=== PATIENT | male | born 1945 | race American Indian/Alaskan Native ===

== ENCOUNTER 2017-01-07 23:48 | Inpatient (IN) | payer MEDICARE, OTHER ==
--- NOTE | 2017-01-08 00:44 | C.PDOC ---
History Of Present Illness Patient presents to the ER with a complaint of left thigh pain. Patient was diagnosed with a blastomycosis infection to the left thigh and has been sporonox with improvement; however, he had to stop due to swelling. Denies fever or chills. Time Seen by Provider: 01/08/17 00:44 Chief Complaint (Nursing): Abnormal Skin Integrity History Per: Patient History/Exam Limitations: no limitations Onset/Duration Of Symptoms: Days Current Symptoms Are (Timing): Still Present Location Of Injury: Left: Thigh (Infection) Quality Of Symptoms: Painful Severity: Mild Pain Scale Rating Of: 4 Recent travel outside of the [place]: No Past Medical History Reviewed: Historical Data, Nursing Documentation, Vital Signs Vital Signs: Last Vital Signs Temp 98.6 F 01/08/17 00:11 Pulse 80 01/08/17 00:11 Resp 16 01/08/17 00:11 BP 167/75 H 01/08/17 00:11 Pulse Ox 100 01/08/17 01:57 - Medical History PMH: Diabetes, HTN - [facility] Procedures DRAINAGE OF BLADDER WITH DRAINAGE DEVICE, VIA OPENING (05/26/16) INSERTION OF INFUSION DEV INTO SUP VENA CAVA, PERC APPROACH (05/26/16) Family History: States: No Known Family Hx - Social History Hx Tobacco Use: Yes (former smoker) Hx Alcohol Use: No Hx Substance Use: No - Immunization History Hx Tetanus Toxoid Vaccination: No Hx Influenza Vaccination: No Hx Pneumococcal Vaccination: No Review Of Systems Constitutional: Negative for: Fever, Chills Musculoskeletal: Positive for: Leg Pain (Left) Skin: Positive for: Lesions (Left thigh) Physical Exam - Physical Exam Appears: Non-toxic Skin: Warm, Dry Head: Atraumatic Eye(s): bilateral: Normal Inspection Oral Mucosa: Moist Neck: Trachea Midline, Supple Chest: Symmetrical, No Tenderness Cardiovascular: Rhythm Regular, No Murmur Respiratory: No Rales, No Rhonchi, No Wheezing Gastrointestinal/Abdominal: Soft, No Tenderness Back: No CVA Tenderness Extremity: Pedal Edema (Bilateral), Other (5x3cm mass to inner left thigh w/ foul smelling discharge. Left hand edema.) Extremity: Bilateral: Atraumatic Neurological/Psych: Oriented x3, Normal Speech, Normal Cognition Gait: Steady ED Course And Treatment - Laboratory Results Result Diagrams: 01/08/17 01:19 01/08/17 01:19 O2 Sat by Pulse Oximetry: 100 (Room air) Pulse Ox Interpretation: Normal - Radiology CXR: Interpreted by Me, Viewed By Me CXR Interpretation: Yes: Other (uncahnged from 05/26/1016). No: Infiltrates, Fracture, Pnemothorax Progress Note: Blood work, urinalysis and CXR ordered. Morphine administered. Disposition Discussed With Dr.: Halie Rojas Comment: accepted the pt on his service and took over the care at 4:20 AM Doctor Will See Patient In The: Hospital Counseled Patient/Family Regarding: Studies Performed, Diagnosis - Disposition Disposition: HOSPITALIZED Disposition Time: 00:44 Condition: FAIR - POA Present On Arrival: Poor Glycemic Control - Clinical Impression Clinical Impression: Skin irritation, Blastomycosis - Scribe Statement The provider has reviewed the documentation as recorded by the Scribneptali Higginbotham All medical record entries made by the Scribe were at my direction and personally dictated by me. I have reviewed the chart and agree that the record accurately reflects my personal performance of the history, physical exam, medical decision making, and the department course for this patient. I have also personally directed, reviewed, and agree with the discharge instructions and disposition. Decision To Admit - Pt Status Changed To: Hospital Disposition Of: Inpatient - Admit Certification Admit to Inpatient:: After my assessment, the patient will require hospitalization for at least two midnights. This is because of the severity of symptoms shown, intensity of services needed, and/or the medical risk in this patient being treated as an outpatient. - InPatient: Physician Admission Certification: I certify that this patient requires 2 or more midnights of care for the following reason:: After my assessment, the patient will require hospitalization for at least two midnights. This is because of the severity of symptoms shown, intensity of services needed, and/or the medical risk in this patient being treated as an outpatient. - . Bed Request Type: Regular Admitting Physician: Halie Rojas Patient Diagnosis: Skin irritation, Blastomycosis
[2017-01-08 01:22] LABS: EOS # 0.1 K/uL (0.0-0.7); HEMATOCRIT 30.4 % (35.0-51.0); LYMPH # 0.9 K/uL (1.0-4.3); MEAN CORPUSCULAR HGB CONC 32.7 g/dL (33.0-37.0); MEAN PLATELET VOLUME 10.4 fL (7.2-11.7); NRBC % 0.1 % (0.0-2.0); RED CELL DISTRIBUTION WIDTH 14.8 % (11.5-14.5); WHITE BLOOD COUNT 4.8 K/uL (4.8-10.8)
[2017-01-08 01:30] LABS: CHLORIDE 102 mmol/L (98-107); POTASSIUM 4.6 mmol/L (3.6-5.2); SODIUM 134 mmol/L (132-148)
[2017-01-08 01:32] LABS: BILIRUBIN,TOTAL 0.9 mg/dL (0.2-1.3); GFR AFRICAN-AMERICAN 43
[2017-01-08 01:33] LABS: ALB/GLOB RATIO 1.1 (1.0-2.1); ALKALINE PHOSPHATASE 93 U/L (38-126); ALT/SGPT 29 U/L (21-72); AST/SGOT 30 U/L (17-59); BLOOD UREA NITROGEN 59 mg/dL (9-20); CARBON DIOXIDE 22 mmol/L (22-30); GLUCOSE,RANDOM 186 mg/dL (75-110); TOTAL PROTEIN 6.3 g/dL (6.3-8.3)
[2017-01-08 01:34] LABS: CALCIUM 6.9 mg/dl (8.6-10.4)
[2017-01-08 01:40] LABS: VENOUS BLOOD GAS BASE EXCESS 1.9 mmol/L (0.0-2.0); VENOUS BLOOD GAS PCO2 50 mmHg (40-60); VENOUS BLOOD PH 7.36 (7.32-7.43)
[2017-01-08 01:55] LABS: MONO # 0.5 K/uL (0.0-0.8)
[2017-01-08 01:56] LABS: BASO # 0.1 K/uL (0.0-0.2)
[2017-01-08 02:17] LABS: RBC URINE 8 /hpf (0-3); URINE BACTERIA RARE (<OCC); URINE BILIRUBIN NEGATIVE (NEGATIVE); URINE BLOOD 1+ (NEGATIVE); URINE COLOR Yellow (YELLOW); URINE GLUCOSE (UA) NORMAL (Normal); URINE KETONE NEGATIVE (NEGATIVE); URINE LEUKOCYTE ESTERASE 2+ Leu/uL (Negative); URINE PROTEIN NEGATIVE (NEGATIVE); URINE UROBILINOGEN NORMAL mg/dL (0.2-1.0); WBC URINE 24 /hpf (0-5)
[2017-01-08] MEDS: (Novolog) Insulin Aspart, Recombinant 100 u/ml 10 ml vial SC SCH ×4 (08:49→21:47)
[2017-01-08] MEDS ORDERED: Enoxaparin 40 mg Syringe SC SCH (10:00)
[2017-01-08] MEDS: Magnesium Oxide 400 mg Tab UD PO SCH ×3 (10:04→17:34)
--- NOTE | 2017-01-08 10:30 | RAD ---
PROCEDURE: CHEST RADIOGRAPH, 1 VIEW HISTORY: Shortness of breath COMPARISON: 05/26/2016. FINDINGS: LUNGS: The lungs are well inflated and clear. PLEURA: No pneumothorax or pleural fluid seen. CARDIOVASCULAR: There is borderline cardiomegaly. OSSEOUS STRUCTURES: No significant abnormalities. VISUALIZED UPPER ABDOMEN: Normal. OTHER FINDINGS: None. IMPRESSION: No active pulmonary disease.
[2017-01-08] MEDS ORDERED: Dextrose 50% SYRINGE Inj (50 ml) ONE (11:48)
[2017-01-08] MEDS ORDERED: Dextrose 50% SYRINGE Inj (50 ml) IV STA (11:48)
--- NOTE | 2017-01-08 16:10 | CP.PCM.CON ---
History of Present Illness - History of Present Illness History of Present Illness: Patient presents to the ER with a complaint of left thigh pain. Patient was diagnosed with a blastomycosis infection to the left thigh and has been sporonox with improvement; however, he had to stop due to swelling. Denies fever or chills. hx renal transplant htn gout cutaneous blasto diabetes c/o left hand swelling pain r/o sepsis r/o septic arthritis r/o gout - Medical History PMH: Diabetes, HTN Review of Systems - Constitutional Constitutional: As Per HPI - EENT Eyes: absent: As Per HPI, Blind Spots, Blurred Vision, Change in Vision, Decreased Night Vision, Diplopia, Discharge, Dry Eye, Exophthalmos, Floaters, Irritation, Itchy Eyes, Loss of Peripheral Vision, Pain, Photophobia, Requires Corrective Lenses, Sees Flashes, Spots in Vision, Tunnel Vision, Other Visual Disturbances, Loss of Vision, Other Ears: absent: As Per HPI, Decreased Hearing, Ear Discharge, Ear Pain, Tinnitus, Abnormal Hearing, Disequilibrium, Dizziness, Other Nose/Mouth/Throat: absent: As Per HPI, Epistaxis, Nasal Congestion, Nasal Discharge, Nasal Obstruction, Nasal Trauma, Nose Pain, Post Nasal Drip, Sinus Pain, Sinus Pressure, Bleeding Gums, Change in Voice, Dental Pain, Dry Mouth, Dysphagia, Halitosis, Hoarsness, Lip Swelling, Mouth Lesions, Mouth Pain, Odynophagia, Sore Throat, Throat Swelling, Tongue Swelling, Facial Pain, Neck Pain, Neck Mass, Other - Cardiovascular Cardiovascular: absent: As Per HPI, Acrocyanosis, Chest Pain, Chest Pain at Rest , Chest Pain with Activity, Claudication, Diaphoresis, Dyspnea, Dyspnea on Exertion, Edema, Irregular Heart Rhythm, Pain Radiating to Arm/Neck/Jaw, Leg Edema, Leg Ulcers, Lightheadedness, Orthopnea, Palpitations, Paroxysmal Nocturnal Dyspnea, Pedal Edema, Radiating Pain, Rapid Heart Rate, Slow Heart Rate, Syncope, Other - Respiratory Respiratory: absent: As Per HPI, Cough, Dyspnea, Hemoptysis, Dyspnea on Exertion , Wheezing, Snoring, Stridor, Pain on Inspiration, Chest Congestion, Excessive Mucous Production, Change in Mucous Color, Pain with Coughing, Other - Gastrointestinal Gastrointestinal: absent: As Per HPI, Abdominal Pain, Belching, Bloating, Change in Bowel Habits, Change in Stool Character, Coffee Ground Emesis, Constipation, Cramping, Diarrhea, Dyspepsia, Dysphagia, Early Satiety, Excessive Flatus, Fecal Incontinence, Heartburn, Hematemesis, Hematochezia, Loose Stools, Melena, Nausea, Odynophagia, Temesmus, Vomiting, Other - Genitourinary Genitourinary: absent: As Per HPI, Change in Urinary Stream, Difficulty Urinating, Dysuria, Flank Pain, Hematuria, Pyuria, Nocturia, Urinary Incontinence, Urinary Frequency, Urinary Hesitance, Urinary Urgency, Voiding Freq/Small Amts, Freq UTI, Hx Renal/Bladder Calculi, Hx /Renal Surgery, Bladder Distension, Other - Musculoskeletal Musculoskeletal: As Per HPI - Integumentary Integumentary: As Per HPI - Neurological Neurological: absent: As Per HPI, Abnormal Gait, Abnormal Hearing, Abnormal Movements, Abnormal Speech, Behavioral Changes, Burning Sensations, Confusion, Convulsions, Disequilibrium, Dizziness, Numbness, Focal Weakness, Frequent Falls , Headaches, Lack of Coordination, Loss of Vision, Memory Loss, Paresthesias, Radicular Pain, Restless Legs, Sensory Deficit, Syncope, Tingling, Tremor, Vertigo, Weakness, Other Visual Disturbances, Other - Psychiatric Psychiatric: absent: As Per HPI, Abnormal Sleep Pattern, Anhedonia, Anxiety, Auditory Hallucinations, Behavioral Changes, Change in Appetite, Change in Libido, Confusion, Depression, Difficulty Concentrating, Hallucinations, Homicidal Ideation, Hopelessness, Irritability, Memory Loss, Mood Swings, Panic Attacks, Paranoia, Suicidal Ideation, Visual Hallucinations, Tactile Hallucinations, Other - Endocrine Endocrine: absent: As Per HPI, Change in Body Appearance, Change in Libido, Cold Intolorance, Deepening of Voice, Excessive Sweating, Fatigue, Flushing, Heat Intolorance, Increase in Ring/Shoe/Hat Size, Palpitations, Polydipsia, Polyphagia, Polyuria, Other Past Patient History - Infectious Disease Hx of Infectious Diseases: None - Past Medical History & Family History Past Medical History?: Yes - Past Social History Smoking Status: Former Smoker - CARDIAC Hx Cardiac Disorders: Yes Hx Hypertension: Yes - PULMONARY Hx Respiratory Disorders: No - NEUROLOGICAL Hx Neurological Disorder: No - HEENT Hx HEENT Problems: No - RENAL Hx Chronic Kidney Disease: Yes Hx Dialysis: Yes (2004) Hx Renal Failure: Yes - ENDOCRINE/METABOLIC Hx Endocrine Disorders: Yes Hx Diabetes Mellitus Type 1: Yes - HEMATOLOGICAL/ONCOLOGICAL Hx Blood Disorders: No - INTEGUMENTARY Hx Dermatological Problems: Yes Other/Comment: FUNGAL INFECTIONS - MUSCULOSKELETAL/RHEUMATOLOGICAL Hx Musculoskeletal Disorders: No Hx Falls: No - GASTROINTESTINAL Hx Gastrointestinal Disorders: No - GENITOURINARY/GYNECOLOGICAL Hx Genitourinary Disorders: No - PSYCHIATRIC Hx Psychophysiologic Disorder: No Hx Substance Use: No - SURGICAL HISTORY Hx Surgeries: Yes Hx Kidney Transplant: Yes (2010) Other/Comment: LEFT ARM A-V SHUNT. - ANESTHESIA Hx Anesthesia: Yes Hx Anesthesia Reactions: No Hx Malignant Hyperthermia: No Meds Allergies/Adverse Reactions: Allergies Allergy/AdvReac Type Severity Reaction Status Date / Time No Known Allergies Allergy Verified 01/08/17 00:15 - Medications Medications: Current Medications Carvedilol (Coreg) 25 mg PO BID [facility] Last Admin: 01/08/17 10:05 Dose: 25 mg Cinacalcet (Sensipar) 30 mg PO DAILY [facility] Last Admin: 01/08/17 10:04 Dose: 30 mg Famotidine (Pepcid) 20 mg PO DAILY [facility] Last Admin: 01/08/17 10:04 Dose: 20 mg Hydromorphone HCl (Dilaudid) 1 mg IVP Q4H PRN PRN Reason: Pain, severe (8-10) Insulin Aspart (Novolog) 0 unit SC [facility] PRN Reason: Protocol Last Admin: 01/08/17 11:50 Dose: Not Given Magnesium Oxide (Mag-Ox) 400 mg PO TID [facility] Last Admin: 01/08/17 14:17 Dose: 400 mg Prednisone (Prednisone Tab) 5 mg PO DAILY [facility] Last Admin: 01/08/17 10:05 Dose: 5 mg Sodium Bicarbonate (Sodium Bicarbonate Tab) 650 mg PO TID [facility] Last Admin: 01/08/17 10:04 Dose: 650 mg Tacrolimus (Prograf) 5 mg PO DAILY [facility] Last Admin: 01/08/17 10:42 Dose: 5 mg Tacrolimus (Prograf) 5 mg PO HS [facility] Tacrolimus (Prograf Cap) 3 mg PO HS [facility] Tacrolimus (Prograf Cap) 0.5 mg PO DAILY [facility] Last Admin: 01/08/17 10:40 Dose: 0.5 mg Tacrolimus (Prograf Cap) 2 mg PO DAILY [facility] Last Admin: 01/08/17 10:41 Dose: 2 mg Physical Exam - Constitutional Appears: Toxic, Chronically Ill - Head Exam Head Exam: ATRAUMATIC, NORMAL INSPECTION, NORMOCEPHALIC - Eye Exam Eye Exam: EOMI, PERRL. absent: Scleral icterus - ENT Exam ENT Exam: Mucous Membranes Dry, Normal External Ear Exam - Neck Exam Neck exam: Negative for: Lymphadenopathy - Respiratory Exam Respiratory Exam: Decreased Breath Sounds, Rhonchi - Cardiovascular Exam Cardiovascular Exam: REGULAR RHYTHM, +S1, +S2 - GI/Abdominal Exam GI & Abdominal Exam: Diminished Bowel Sounds, Soft. absent: Tenderness - Rectal Exam Rectal Exam: Deferred - Exam Exam: NORMAL INSPECTION - Extremities Exam Extremities exam: Positive for: pedal pulses present. Negative for: calf tenderness, pedal edema, tenderness - Back Exam Back exam: absent: CVA tenderness (L), CVA tenderness (R) - Neurological Exam Neurological exam: Alert, CN II-XII Intact, Oriented x3, Reflexes Normal - Psychiatric Exam Psychiatric exam: Normal Mood - Skin Skin Exam: Dry, Intact Results - Vital Signs Recent Vital Signs: Last Vital Signs Temp 98.1 F 01/08/17 16:00 Pulse 80 01/08/17 16:00 Resp 20 01/08/17 16:00 BP 162/83 H 01/08/17 16:00 Pulse Ox 100 01/08/17 16:00 - Labs Result Diagrams: 01/08/17 01:19 01/08/17 01:19 Labs: Laboratory Results - last 24 hr 01/08/17 01/08/17 11:41 11:57 POC Glucose (mg/dL) 28 L* 225 H Assessment & Plan (1) Blastomycosis Status: Acute (2) COPD exacerbation Status: Acute (3) Chronic kidney disease, stage 3 Status: Acute (4) Diabetes type 2, controlled Status: Acute - Assessment and Plan (Free Text) Plan: c/o left hand swelling pain r/o sepsis r/o septic arthritis r/o gout left leg lesion - likely worsening blastomyces check cultures
[2017-01-08] MEDS ORDERED: Sodium Chloride 0.9% 1,000 ML IV SCH ×2 (17:00→17:03)
--- NOTE | 2017-01-08 17:33 | CP.PCM.HP ---
Past Patient History - Infectious Disease Hx of Infectious Diseases: None - Past Medical History & Family History Past Medical History?: Yes - Past Social History Smoking Status: Former Smoker - CARDIAC Hx Cardiac Disorders: Yes Hx Hypertension: Yes - PULMONARY Hx Respiratory Disorders: No - NEUROLOGICAL Hx Neurological Disorder: No - HEENT Hx HEENT Problems: No - RENAL Hx Chronic Kidney Disease: Yes Hx Dialysis: Yes (2004) Hx Renal Failure: Yes - ENDOCRINE/METABOLIC Hx Endocrine Disorders: Yes Hx Diabetes Mellitus Type 1: Yes - HEMATOLOGICAL/ONCOLOGICAL Hx Blood Disorders: No - INTEGUMENTARY Hx Dermatological Problems: Yes Other/Comment: FUNGAL INFECTIONS - MUSCULOSKELETAL/RHEUMATOLOGICAL Hx Musculoskeletal Disorders: No Hx Falls: No - GASTROINTESTINAL Hx Gastrointestinal Disorders: No - GENITOURINARY/GYNECOLOGICAL Hx Genitourinary Disorders: No - PSYCHIATRIC Hx Psychophysiologic Disorder: No Hx Substance Use: No - SURGICAL HISTORY Hx Surgeries: Yes Hx Kidney Transplant: Yes (2010) Other/Comment: LEFT ARM A-V SHUNT. - ANESTHESIA Hx Anesthesia: Yes Hx Anesthesia Reactions: No Hx Malignant Hyperthermia: No Meds Allergies/Adverse Reactions: Allergies Allergy/AdvReac Type Severity Reaction Status Date / Time No Known Allergies Allergy Verified 01/08/17 00:15 Physical Exam - Constitutional Appears: Well - Head Exam Head Exam: ATRAUMATIC, NORMAL INSPECTION, NORMOCEPHALIC - Eye Exam Eye Exam: EOMI, Normal appearance, PERRL Pupil Exam: NORMAL ACCOMODATION, PERRL - ENT Exam ENT Exam: Mucous Membranes Moist, Normal Exam - Neck Exam Neck exam: Positive for: Normal Inspection - Respiratory Exam Respiratory Exam: Decreased Breath Sounds - Cardiovascular Exam Cardiovascular Exam: REGULAR RHYTHM, +S1, +S2 - GI/Abdominal Exam GI & Abdominal Exam: Diminished Bowel Sounds, Soft - Rectal Exam Rectal Exam: Deferred Results - Vital Signs Recent Vital Signs: Last Vital Signs Temp 98.1 F 01/08/17 16:00 Pulse 80 01/08/17 16:00 Resp 20 01/08/17 16:00 BP 162/83 H 01/08/17 16:00 Pulse Ox 100 01/08/17 16:00 - Labs Result Diagrams: 01/08/17 01:19 01/08/17 01:19 Labs: Laboratory Results - last 24 hr 01/08/17 01/08/17 01/08/17 11:41 11:57 16:38 POC Glucose (mg/dL) 28 L* 225 H 149 H
[2017-01-08 18:25] LABS: PROCALCITONIN SERUM 5.86 NG/ML (0.19-0.49)
[2017-01-08] MEDS: Micafungin 100 MG in Sodium Chloride 0.9% 100 ML IV SCH (18:39)
[2017-01-08 19:00] LABS: RBC URINE 1 /hpf (0-3); TRANSITIONAL EPITHIAL < 1 /hpf (0-3); URINE BACTERIA RARE (<OCC); URINE BILIRUBIN NEGATIVE (NEGATIVE); URINE COLOR Yellow (YELLOW); URINE GLUCOSE (UA) NORMAL (Normal); URINE KETONE NEGATIVE (NEGATIVE); URINE LEUKOCYTE ESTERASE 1+ Leu/uL (Negative); URINE PROTEIN 1+ mg/dL (NEGATIVE); URINE UROBILINOGEN NORMAL mg/dL (0.2-1.0); WBC URINE 10 /hpf (0-5)
[2017-01-08 19:01] LABS: URINE BLOOD NEGATIVE (NEGATIVE)
[2017-01-08] MEDS: Cefepime IV 1 gm in Dextrose 1 GM/50 ML BAG IVPB SCH (19:52)
[2017-01-09] MEDS: (Novolog) Insulin Aspart, Recombinant 100 u/ml 10 ml vial SC SCH ×4 (07:41→22:00)
[2017-01-09] MEDS: Magnesium Oxide 400 mg Tab UD PO SCH ×3 (09:08→17:10)
[2017-01-09] MEDS: HYDROmorphone 1 mg/ml ISec IVP PRN ×3 (09:09→21:43)
--- NOTE | 2017-01-09 12:15 | CP.PCM.CON ---
History of Present Illness - History of Present Illness History of Present Illness: Patient presents to the ER with a complaint of left thigh pain. Patient was diagnosed with a blastomycosis infection to the left thigh and has been sporonox with improvement; however, he had to stop due to swelling. Denies fever or chills. Seen as outpatient and discussed with Dr. Cannon, was scheduled to start voriconazole with reduction in tacrolimus dose No recent fever or chills Reports fatigue and weakness Groin swelling and rash most concerning and caused patient to present to ed Patient also noted left hand and wrist swellin and decreased range of motion hx renal transplant from donor in 2010, stable allograft course with ckd stage 3, multiple infectious complications requiring hospitalization at [facility]. htn gout cutaneous blasto diabetes c/o left hand swelling pain r/o sepsis r/o septic arthritis r/o gout - Medical History PMH: Diabetes, HTN Review of Systems - Constitutional Constitutional: Fatigue, Lethargy. absent: Fever - EENT Eyes: absent: Dry Eye, Loss of Peripheral Vision, Pain Ears: absent: Decreased Hearing, Ear Discharge, Disequilibrium Nose/Mouth/Throat: absent: Nasal Congestion, Sinus Pressure, Dry Mouth - Cardiovascular Cardiovascular: absent: Chest Pain, Chest Pain at Rest, Diaphoresis, Irregular Heart Rhythm - Respiratory Respiratory: absent: Cough, Dyspnea, Snoring, Stridor - Gastrointestinal Gastrointestinal: absent: Dyspepsia, Dysphagia, Heartburn, Nausea - Genitourinary Genitourinary: absent: Hematuria, Pyuria - Musculoskeletal Musculoskeletal: Arthralgias, Joint Swelling. absent: Muscle Weakness - Integumentary Integumentary: New Lesions, Rash, Swelling - Neurological Neurological: absent: Disequilibrium, Headaches, Syncope - Psychiatric Psychiatric: absent: Depression, Panic Attacks, Paranoia - Endocrine Endocrine: absent: Heat Intolorance, Polyphagia, Polyuria - Hematologic/Lymphatic Hematologic: absent: Easy Bleeding, Easy Bruising Past Patient History - Infectious Disease Hx of Infectious Diseases: None - Past Medical History & Family History Past Medical History?: Yes - Past Social History Smoking Status: Former Smoker - CARDIAC Hx Cardiac Disorders: Yes Hx Hypertension: Yes - PULMONARY Hx Respiratory Disorders: No - NEUROLOGICAL Hx Neurological Disorder: No - HEENT Hx HEENT Problems: No - RENAL Hx Chronic Kidney Disease: Yes Hx Dialysis: Yes (2004) Hx Renal Failure: Yes - ENDOCRINE/METABOLIC Hx Endocrine Disorders: Yes Hx Diabetes Mellitus Type 1: Yes - HEMATOLOGICAL/ONCOLOGICAL Hx Blood Disorders: No - INTEGUMENTARY Hx Dermatological Problems: Yes Other/Comment: FUNGAL INFECTIONS - MUSCULOSKELETAL/RHEUMATOLOGICAL Hx Musculoskeletal Disorders: No Hx Falls: No - GASTROINTESTINAL Hx Gastrointestinal Disorders: No - GENITOURINARY/GYNECOLOGICAL Hx Genitourinary Disorders: No - PSYCHIATRIC Hx Psychophysiologic Disorder: No Hx Substance Use: No - SURGICAL HISTORY Hx Surgeries: Yes Hx Kidney Transplant: Yes (2010) Other/Comment: LEFT ARM A-V SHUNT. - ANESTHESIA Hx Anesthesia: Yes Hx Anesthesia Reactions: No Hx Malignant Hyperthermia: No Meds Allergies/Adverse Reactions: Allergies Allergy/AdvReac Type Severity Reaction Status Date / Time No Known Allergies Allergy Verified 01/08/17 00:15 - Medications Medications: Current Medications Carvedilol (Coreg) 25 mg PO BID [facility] Last Admin: 01/09/17 09:08 Dose: 25 mg Cinacalcet (Sensipar) 30 mg PO DAILY [facility] Last Admin: 01/09/17 09:08 Dose: 30 mg Famotidine (Pepcid) 20 mg PO DAILY [facility] Last Admin: 01/09/17 09:08 Dose: 20 mg Hydromorphone HCl (Dilaudid) 1 mg IVP Q4H PRN PRN Reason: Pain, severe (8-10) Last Admin: 01/09/17 09:09 Dose: 1 mg Micafungin Sodium 100 mg/ (Sodium Chloride) 100 mls @ 100 mls/hr IV Q24H [facility] Last Admin: 01/08/17 18:39 Dose: 100 mls/hr Cefepime HCl (Maxipime Iv 1 Gm Premix) 1 gm in 50 mls @ 100 mls/hr IVPB Q24H [facility] Last Admin: 01/08/17 19:52 Dose: 100 mls/hr Sodium Chloride (Sodium Chloride 0.9%) 1,000 mls @ 40 mls/hr IV .Q24H [facility] Last Admin: 01/08/17 17:37 Dose: 40 mls/hr Insulin Aspart (Novolog) 0 unit SC ACHS [facility] PRN Reason: Protocol Last Admin: 01/09/17 07:41 Dose: Not Given Magnesium Oxide (Mag-Ox) 400 mg PO TID [facility] Last Admin: 01/09/17 09:08 Dose: 400 mg Prednisone (Prednisone Tab) 5 mg PO DAILY [facility] Last Admin: 01/09/17 09:08 Dose: 5 mg Sodium Bicarbonate (Sodium Bicarbonate Tab) 650 mg PO TID [facility] Last Admin: 01/09/17 09:08 Dose: 650 mg Tacrolimus (Prograf) 5 mg PO DAILY [facility] Last Admin: 01/09/17 09:09 Dose: 5 mg Tacrolimus (Prograf) 5 mg PO HS [facility] Last Admin: 01/08/17 21:18 Dose: 5 mg Tacrolimus (Prograf Cap) 3 mg PO HS [facility] Last Admin: 01/08/17 21:17 Dose: 3 mg Tacrolimus (Prograf Cap) 0.5 mg PO DAILY [facility] Last Admin: 01/09/17 09:08 Dose: 0.5 mg Tacrolimus (Prograf Cap) 2 mg PO DAILY [facility] Last Admin: 01/09/17 09:09 Dose: 2 mg Physical Exam - Constitutional Appears: Well, Non-toxic - Head Exam Head Exam: ATRAUMATIC, NORMAL INSPECTION - Eye Exam Eye Exam: EOMI, Normal appearance - ENT Exam ENT Exam: Mucous Membranes Moist, Normal Oropharynx - Neck Exam Neck exam: Negative for: Lymphadenopathy, Thyromegaly - Respiratory Exam Respiratory Exam: Clear to Auscultation Bilateral. absent: Rhonchi, Wheezes - Cardiovascular Exam Cardiovascular Exam: REGULAR RHYTHM, +S1, +S2. absent: Irregular Rhythm - GI/Abdominal Exam GI & Abdominal Exam: Normal Bowel Sounds, Soft. absent: Tenderness Additional comments: allograft nontender - Extremities Exam Extremities exam: Positive for: normal inspection. Negative for: pedal edema - Back Exam Back exam: absent: CVA tenderness (L), CVA tenderness (R) - Neurological Exam Neurological exam: Alert, Oriented x3 - Psychiatric Exam Psychiatric exam: Normal Affect, Normal Mood - Skin Skin Exam: Rash Additional comments: left groin rash Results - Vital Signs Recent Vital Signs: Last Vital Signs Temp 99.2 F 01/09/17 04:00 Pulse 81 01/08/17 23:15 Resp 20 01/08/17 23:15 BP 138/81 01/09/17 09:08 Pulse Ox 97 01/08/17 23:15 - Labs Result Diagrams: 01/08/17 01:19 01/08/17 01:19 Labs: Laboratory Results - last 24 hr 01/08/17 01/08/17 01/08/17 16:38 17:33 17:33 POC Glucose (mg/dL) 149 H Uric Acid 4.9 Procalcitonin 5.86 H Urine Color Urine Clarity Urine pH Ur Specific [place] Urine Protein Urine Glucose (UA) Urine Ketones Urine Blood Urine Nitrate Urine Bilirubin Urine Urobilinogen Ur Leukocyte Esterase Urine WBC (Auto) Urine RBC (Auto) Ur Squamous Epith Cells Ur Transition Epith Cell Urine Bacteria 01/08/17 01/08/17 01/09/17 18:50 21:04 06:05 POC Glucose (mg/dL) 185 H 108 Uric Acid Procalcitonin Urine Color Yellow Urine Clarity Hazy Urine pH 5.0 Ur Specific [place] 1.012 Urine Protein 1+ H Urine Glucose (UA) Normal Urine Ketones Negative Urine Blood Negative Urine Nitrate Negative Urine Bilirubin Negative Urine Urobilinogen Normal Ur Leukocyte Esterase 1+ H Urine WBC (Auto) 10 H Urine RBC (Auto) 1 Ur Squamous Epith Cells 1 Ur Transition Epith Cell < 1 Urine Bacteria Rare Assessment & Plan (1) Anemia Status: Acute (2) Blastomycosis Status: Acute (3) Chronic kidney disease, stage 3 Status: Acute (4) Diabetes type 2, controlled Status: Acute (5) History of kidney transplant Status: Acute (6) Hypertension Status: Acute (7) Kidney transplant recipient Status: Acute (8) Hyperparathyroidism due to renal insufficiency Status: Acute - Assessment and Plan (Free Text) Assessment: Kidney transplant with stable allograft function Maintain immunosuppression, will need tacrolimus monitoring with antifungal use CKD stage 3 baseline HTN controlled Pyperparathyroidism - continue sensipar ABX/Antifungal per ID evaluation
--- NOTE | 2017-01-09 13:07 | CP.PCM.PN ---
Subjective - Date & Time of Evaluation Date of Evaluation: 01/09/17 Time of Evaluation: 12:00 - Subjective Subjective: clinically same Objective - Vital Signs/Intake and Output Vital Signs (last 24 hours): Temp Pulse Resp BP Pulse Ox 99.2 F 81 20 138/81 97 01/09/17 04:00 01/08/17 23:15 01/08/17 23:15 01/09/17 09:08 01/08/17 23:15 - Medications Medications: Current Medications Carvedilol (Coreg) 25 mg PO BID [facility] Last Admin: 01/09/17 09:08 Dose: 25 mg Cinacalcet (Sensipar) 30 mg PO DAILY [facility] Last Admin: 01/09/17 09:08 Dose: 30 mg Famotidine (Pepcid) 20 mg PO DAILY [facility] Last Admin: 01/09/17 09:08 Dose: 20 mg Hydromorphone HCl (Dilaudid) 1 mg IVP Q4H PRN PRN Reason: Pain, severe (8-10) Last Admin: 01/09/17 09:09 Dose: 1 mg Micafungin Sodium 100 mg/ (Sodium Chloride) 100 mls @ 100 mls/hr IV Q24H [facility] Last Admin: 01/08/17 18:39 Dose: 100 mls/hr Cefepime HCl (Maxipime Iv 1 Gm Premix) 1 gm in 50 mls @ 100 mls/hr IVPB Q24H [facility] Last Admin: 01/08/17 19:52 Dose: 100 mls/hr Sodium Chloride (Sodium Chloride 0.9%) 1,000 mls @ 40 mls/hr IV .Q24H [facility] Last Admin: 01/08/17 17:37 Dose: 40 mls/hr Insulin Aspart (Novolog) 0 unit SC ACHS [facility] PRN Reason: Protocol Last Admin: 01/09/17 12:46 Dose: 2 unit Magnesium Oxide (Mag-Ox) 400 mg PO TID [facility] Last Admin: 01/09/17 09:08 Dose: 400 mg Prednisone (Prednisone Tab) 5 mg PO DAILY [facility] Last Admin: 01/09/17 09:08 Dose: 5 mg Sodium Bicarbonate (Sodium Bicarbonate Tab) 650 mg PO TID [facility] Last Admin: 01/09/17 09:08 Dose: 650 mg Tacrolimus (Prograf) 5 mg PO DAILY [facility] Last Admin: 01/09/17 09:09 Dose: 5 mg Tacrolimus (Prograf) 5 mg PO HS [facility] Last Admin: 01/08/17 21:18 Dose: 5 mg Tacrolimus (Prograf Cap) 3 mg PO HS [facility] Last Admin: 01/08/17 21:17 Dose: 3 mg Tacrolimus (Prograf Cap) 0.5 mg PO DAILY [facility] Last Admin: 01/09/17 09:08 Dose: 0.5 mg Tacrolimus (Prograf Cap) 2 mg PO DAILY [facility] Last Admin: 01/09/17 09:09 Dose: 2 mg - Labs Labs: PT 11.7 SECONDS (9.7-12.2) 01/08/17 01:35 INR 1.0 01/08/17 01:35 APTT 27 SECONDS (21-34) 01/08/17 01:35 - Constitutional Appears: Well - Head Exam Head Exam: ATRAUMATIC, NORMAL INSPECTION, NORMOCEPHALIC - Eye Exam Eye Exam: EOMI, Normal appearance, PERRL Pupil Exam: NORMAL ACCOMODATION, PERRL - ENT Exam ENT Exam: Mucous Membranes Moist, Normal Exam - Neck Exam Neck Exam: Full ROM, Normal Inspection. absent: Lymphadenopathy - Respiratory Exam Respiratory Exam: Decreased Breath Sounds - Cardiovascular Exam Cardiovascular Exam: REGULAR RHYTHM, +S1, +S2 - GI/Abdominal Exam GI & Abdominal Exam: Soft, Diminished Bowel Sounds - Rectal Exam Rectal Exam: Deferred
[2017-01-09] MEDS: Micafungin 100 MG in Sodium Chloride 0.9% 100 ML IV SCH (17:12)
[2017-01-09] MEDS: Cefepime IV 1 gm in Dextrose 1 GM/50 ML BAG IVPB SCH (19:20)
[2017-01-10] MEDS: HYDROmorphone 1 mg/ml ISec IVP PRN ×2 (02:22→09:45)
[2017-01-10 07:32] LABS: BASO # 0.1 K/uL (0.0-0.2); EOS # 0.1 K/uL (0.0-0.7); EOS % 1.4 % (0.0-4.0); HEMATOCRIT 31.7 % (35.0-51.0); LYMPH # 1.1 K/uL (1.0-4.3); LYMPH % 24.2 % (20.0-40.0); MEAN CELL VOLUME 92.1 fL (80.0-94.0); MEAN CORPUSCULAR HGB CONC 32.6 g/dL (33.0-37.0); MEAN PLATELET VOLUME 10.7 fL (7.2-11.7); MONO % 21.7 % (0.0-10.0); PLATELET COUNT 87 K/uL (130-400); RED CELL DISTRIBUTION WIDTH 14.7 % (11.5-14.5); WHITE BLOOD COUNT 4.5 K/uL (4.8-10.8)
[2017-01-10 07:34] LABS: POTASSIUM 5.5 mmol/L (3.6-5.2)
[2017-01-10 07:37] LABS: BILIRUBIN,TOTAL 0.8 mg/dL (0.2-1.3); CALCIUM 7.1 mg/dl (8.6-10.4); TOTAL PROTEIN 5.9 g/dL (6.3-8.3)
[2017-01-10] MEDS: (Novolog) Insulin Aspart, Recombinant 100 u/ml 10 ml vial SC SCH ×4 (07:59→22:02)
[2017-01-10] MEDS: Magnesium Oxide 400 mg Tab UD PO SCH ×3 (09:35→17:28)
[2017-01-10 10:43] LABS: NEUTROPHIL 65 % (50-75); TOTAL CELLS COUNTED 100
--- NOTE | 2017-01-10 12:49 | CP.PCM.PN ---
Subjective - Date & Time of Evaluation Date of Evaluation: 01/10/17 Time of Evaluation: 08:00 - Subjective Subjective: LEFT WRIST PAIN / SWELLING LESS ON IV ANTIBIOTICS AND ANTIFUNGALS URIC ACID WNL NO COLCHICINE GIVEN URINE GROWING RESISTANT GRAM NEG [place] WILL ADD TYGACIL MAY NEED ARTHROCENTESIS/ MRI / BONE SCAN LEFT WRIST IF SWELLING PERSISTS Objective - Vital Signs/Intake and Output Vital Signs (last 24 hours): Temp Pulse Resp BP Pulse Ox 98.4 F 69 18 155/77 H 100 01/10/17 08:18 01/10/17 08:18 01/10/17 08:18 01/10/17 09:33 01/10/17 08:18 - Medications Medications: Current Medications Carvedilol (Coreg) 25 mg PO BID [facility] Last Admin: 01/10/17 09:33 Dose: 25 mg Cinacalcet (Sensipar) 30 mg PO DAILY [facility] Last Admin: 01/10/17 09:33 Dose: 30 mg Famotidine (Pepcid) 20 mg PO DAILY [facility] Last Admin: 01/10/17 09:35 Dose: 20 mg Hydromorphone HCl (Dilaudid) 1 mg IVP Q4H PRN PRN Reason: Pain, severe (8-10) Last Admin: 01/10/17 09:45 Dose: 1 mg Micafungin Sodium 100 mg/ (Sodium Chloride) 100 mls @ 100 mls/hr IV Q24H [facility] Last Admin: 01/09/17 17:12 Dose: 100 mls/hr Cefepime HCl (Maxipime Iv 1 Gm Premix) 1 gm in 50 mls @ 100 mls/hr IVPB Q24H [facility] Last Admin: 01/09/17 19:20 Dose: 100 mls/hr Insulin Aspart (Novolog) 0 unit SC ACHS [facility] PRN Reason: Protocol Last Admin: 01/10/17 12:35 Dose: 2 unit Magnesium Oxide (Mag-Ox) 400 mg PO TID [facility] Last Admin: 01/10/17 09:35 Dose: 400 mg Prednisone (Prednisone Tab) 5 mg PO DAILY [facility] Last Admin: 01/10/17 09:35 Dose: 5 mg Sodium Bicarbonate (Sodium Bicarbonate Tab) 650 mg PO TID [facility] Last Admin: 01/10/17 09:33 Dose: 650 mg Tacrolimus (Prograf) 5 mg PO DAILY [facility] Last Admin: 01/10/17 09:36 Dose: 5 mg Tacrolimus (Prograf) 5 mg PO HS [facility] Last Admin: 01/09/17 21:49 Dose: 5 mg Tacrolimus (Prograf Cap) 3 mg PO HS [facility] Last Admin: 01/09/17 21:49 Dose: 3 mg Tacrolimus (Prograf Cap) 0.5 mg PO DAILY [facility] Last Admin: 01/10/17 09:36 Dose: 0.5 mg Tacrolimus (Prograf Cap) 2 mg PO DAILY [facility] Last Admin: 01/10/17 09:35 Dose: 2 mg - Labs Labs: 01/10/17 07:06 01/10/17 07:06 PT 11.7 SECONDS (9.7-12.2) 01/08/17 01:35 INR 1.0 01/08/17 01:35 APTT 27 SECONDS (21-34) 01/08/17 01:35 - Constitutional Appears: Non-toxic, Cachectic, Chronically Ill - Head Exam Head Exam: NORMOCEPHALIC - Eye Exam Eye Exam: PERRL. absent: Scleral icterus - ENT Exam ENT Exam: Mucous Membranes Dry, Normal External Ear Exam - Neck Exam Neck Exam: absent: Lymphadenopathy - Respiratory Exam Respiratory Exam: Decreased Breath Sounds, Clear to Ausculation Bilateral - Cardiovascular Exam Cardiovascular Exam: REGULAR RHYTHM, +S1, +S2 - GI/Abdominal Exam GI & Abdominal Exam: Distended, Soft. absent: Tenderness - Rectal Exam Rectal Exam: Deferred - Exam Exam: NORMAL INSPECTION - Extremities Exam Extremities Exam: Tenderness. absent: Calf Tenderness, Pedal Edema - Back Exam Back Exam: absent: CVA tenderness (L), CVA tenderness (R) - Neurological Exam Neurological Exam: Alert, Awake, Oriented x3 - Psychiatric Exam Psychiatric exam: Normal Mood - Skin Skin Exam: Dry Assessment and Plan (1) Blastomycosis Status: Acute (2) COPD exacerbation Status: Acute (3) Chronic kidney disease, stage 3 Status: Acute (4) Diabetes type 2, controlled Status: Acute - Assessment and Plan (Free Text) Assessment: Patient was diagnosed with a blastomycosis infection to the left thigh and has been sporonox with improvement; however, he had to stop due to swelling. Den Seen as outpatient and was scheduled to start voriconazole DUE TO PA REQUEST, ANTIFUNGAL NOT STARTED- NOW PRESENTS WITH WORSENING LEFT LEG LESION AND SWOLLEN LEFT WRIST CONCERN IS FOR POSSIBLE DISSEMINATED BLASTOMYCES ALSO HAS UTI WITH MDRO hx renal transplant from donor in 2010, stable allograft course with ckd stage 3, multiple infectious complications requiring hospitalization at [facility]. htn gout cutaneous blasto diabetes
--- NOTE | 2017-01-10 13:29 | CP.PCM.PCO ---
Physician Communication Note - Physician Communication Note Physician Communication Note: VORICONAZOLE TO START TODAY
--- NOTE | 2017-01-10 13:29 | CP.PCM.PCO ---
Physician Communication Note - Physician Communication Note Physician Communication Note: REQUESTED PHARMACY TO DECREASE PROGRAF DOSE
--- NOTE | 2017-01-10 15:39 | RAD ---
Left wrist two views History: Infection. Evaluate for osteomyelitis. Comparison: None available. Findings: Diffuse osteopenia. Cortical irregularity with a suggestion of periosteal thickening along the radial sided cortex of the distal radius. In the setting of acute infection, acute osteomyelitis can't be excluded. Correlation with MRI may be helpful for further evaluation if clinically indicated. Prominent narrowing of the radiocarpal joint space. Suggestion of loss of height of the proximal carpal row which may be the sequelae of prominent degenerative change versus the sequelae of post traumatic and or postinflammatory/infectious changes. Clinical correlation. Vascular calcifications. Cortical irregularity seen at the dorsal aspect of the carpal row on the lateral view, nonspecific. Soft tissue swelling and/or edema seen within the dorsal soft tissues at the level of the carpal bones. Impression: 1. Cortical irregularity with a suggestion of periosteal thickening along the radial sided cortex of the distal radius. In the setting of acute infection, acute osteomyelitis can't be excluded. Correlation with MRI may be helpful for further evaluation if clinically indicated. 2. Diffuse osteopenia. Prominent narrowing of the radiocarpal joint space. 3. Suggestion of loss of height of the proximal carpal row which may be the sequelae of prominent degenerative change versus the sequelae of post traumatic and or postinflammatory/infectious changes. Clinical correlation. 4. Vascular calcifications. 5. Cortical irregularity seen at the dorsal aspect of the carpal row on the lateral view, nonspecific. 6. Soft tissue swelling and/or edema seen within the dorsal soft tissues at the level of the carpal bones.
--- NOTE | 2017-01-10 15:41 | CP.PCM.PN ---
Subjective - Date & Time of Evaluation Date of Evaluation: 01/10/17 Time of Evaluation: 13:25 - Subjective Subjective: clinically same Objective - Vital Signs/Intake and Output Vital Signs (last 24 hours): Temp Pulse Resp BP Pulse Ox 98.4 F 69 18 155/77 H 100 01/10/17 08:18 01/10/17 08:18 01/10/17 08:18 01/10/17 09:33 01/10/17 08:18 Intake and Output: 01/10/17 01/10/17 06:59 18:59 Intake Total 480 Balance 480 - Medications Medications: Current Medications Carvedilol (Coreg) 25 mg PO BID [facility] Last Admin: 01/10/17 09:33 Dose: 25 mg Cinacalcet (Sensipar) 30 mg PO DAILY [facility] Last Admin: 01/10/17 09:33 Dose: 30 mg Famotidine (Pepcid) 20 mg PO DAILY [facility] Last Admin: 01/10/17 09:35 Dose: 20 mg Hydromorphone HCl (Dilaudid) 1 mg IVP Q4H PRN PRN Reason: Pain, severe (8-10) Last Admin: 01/10/17 09:45 Dose: 1 mg Tigecycline 50 mg/ Sodium (Chloride) 100 mls @ 100 mls/hr IVPB Q12H [facility] Insulin Aspart (Novolog) 0 unit SC ACHS [facility] PRN Reason: Protocol Last Admin: 01/10/17 12:35 Dose: 2 unit Magnesium Oxide (Mag-Ox) 400 mg PO TID [facility] Last Admin: 01/10/17 13:37 Dose: 400 mg Prednisone (Prednisone Tab) 5 mg PO DAILY [facility] Last Admin: 01/10/17 09:35 Dose: 5 mg Sodium Bicarbonate (Sodium Bicarbonate Tab) 650 mg PO TID [facility] Last Admin: 01/10/17 13:37 Dose: 650 mg Tacrolimus (Prograf Cap) 3 mg PO DAILY [facility] Tacrolimus (Prograf Cap) 3 mg PO HS [facility] Voriconazole (Vfend 200 Mg Tab) 200 mg PO Q12H [facility] - Labs Labs: 01/10/17 07:06 01/10/17 07:06 PT 11.7 SECONDS (9.7-12.2) 01/08/17 01:35 INR 1.0 01/08/17 01:35 APTT 27 SECONDS (21-34) 01/08/17 01:35
[2017-01-10] MEDS ORDERED: Sod Polystyrene Sulf 15 gm/60 ml Oral Susp PO ONE (16:42)
[2017-01-11] MEDS: HYDROmorphone 1 mg/ml ISec IVP PRN ×2 (00:41→22:06)
[2017-01-11 07:13] LABS: HEMATOCRIT 29.9 % (35.0-51.0); MEAN CELL VOLUME 90.8 fL (80.0-94.0); MEAN CORPUSCULAR HEMOGLOBIN 29.8 pg (27.0-31.0); MEAN CORPUSCULAR HGB CONC 32.8 g/dL (33.0-37.0); MEAN PLATELET VOLUME 10.3 fL (7.2-11.7); RED CELL DISTRIBUTION WIDTH 14.6 % (11.5-14.5); WHITE BLOOD COUNT 4.7 K/uL (4.8-10.8)
[2017-01-11 07:15] LABS: BILIRUBIN,TOTAL 0.7 mg/dL (0.2-1.3)
[2017-01-11 07:16] LABS: CALCIUM 6.8 mg/dl (8.6-10.4); TOTAL PROTEIN 5.7 g/dL (6.3-8.3)
[2017-01-11] MEDS: (Novolog) Insulin Aspart, Recombinant 100 u/ml 10 ml vial SC SCH ×4 (08:00→22:05)
[2017-01-11 08:22] LABS: EOS # 0.1 K/uL (0.0-0.7); LYMPH # 1.2 K/uL (1.0-4.3); MONO # 0.6 K/uL (0.0-0.8)
--- NOTE | 2017-01-11 09:16 | VASCLAB ---
PROCEDURE: Left Upper Extremity Venous Duplex Exam HISTORY: LUE Swelling PRIORS: None. TECHNIQUE: Left upper extremity, internal jugular, subclavian, axillary, brachial, ulnar, radial, basilic and upper cephalic veins were evaluated. Flow was assessed with color Doppler, compressibility, assessment of phasic flow and augmentation response. Report prepared by NEIL Kumari, RVT FINDINGS: LEFT: 1. Internal Jugular: 1.1. Compressibility - Fully compressible: Thrombus - None : Flow - Phasic: Augmentation -Normal: Reflux - None. 2. Subclavian: 2.1. Compressibility - Fully compressible: Thrombus - None : Flow - Phasic: Augmentation -Normal: Reflux - None. 3. Axillary: 3.1. Compressibility - Fully compressible: Thrombus - None : Flow - Phasic: Augmentation -Normal: Reflux - None. 4. Brachial: 4.1. Compressibility - Fully compressible: Thrombus - None: Flow - Phasic: Augmentation -Normal: Reflux - None. 5. Ulnar: 5.1. Compressibility - Fully compressible: Thrombus - None: Flow - Phasic: Augmentation -Normal: Reflux - None. 6. Radial: 6.1. Compressibility - Fully compressible: Thrombus - None: Flow - Phasic: Augmentation - Normal: Reflux - None. 7. Cephalic: 7.1. Compressibility - : Thrombus - : Flow - : Augmentation -: Reflux - . 8. Basilic: 8.1. Compressibility - Fully compressible: Thrombus - None: Flow - Phasic: Augmentation -Normal: Reflux - None. OTHER FINDINGS: Left: A functional left brachial-cephalic AV fistula noted. IMPRESSION: Left: No evidence of vein thrombosis of the left upper extremity with excellent venous flow. Normal valve function noted of the left side. Normal venous flow noted in the right internal jugular and right subclavian veins.
--- NOTE | 2017-01-11 09:17 | VASCLAB ---
PROCEDURE: Left Lower Extremity Venous Duplex Exam. HISTORY: LLE Swelling PRIORS: None. TECHNIQUE: Left common femoral, femoral, popliteal and posterior tibial, peroneal and great saphenous veins were evaluated. Flow was assessed with color Doppler, compressibility, assessment of phasic flow and augmentation response. Report prepared by NEIL Kumari, RVT FINDINGS: LEFT: 1. Common Femoral Vein: 1.1. Compressibility - Fully compressible: Thrombus - None : Flow - Phasic: Augmentation -Normal: Reflux - None. 2. Femoral Vein: 2.1. Compressibility - Fully compressible: Thrombus - None: Flow - Phasic: Augmentation -Normal: Reflux - None. 3. Popliteal Vein: 3.1. Compressibility - Fully compressible: Thrombus - None: Flow - Phasic: Augmentation -Normal: Reflux - None. 4. Posterior Tibial Vein: 4.1. Compressibility - Fully compressible: Thrombus - None: Flow - Phasic: Augmentation -Normal: Reflux - None. 5. Peroneal Vein: 5.1. Compressibility - Fully compressible: Thrombus - None: Flow - Phasic: Augmentation -Normal: Reflux - None. 6. Great Saphenous Vein: 6.1. Compressibility - Fully compressible: Thrombus - None: Flow - Phasic: Augmentation - Normal: Reflux - None. OTHER FINDINGS: IMPRESSION: No evidence of deep or superficial vein thrombosis of the left lower extremity with excellent venous flow. Normal valve function noted of the left side. Normal venous flow noted in the right common femoral vein.
[2017-01-11] MEDS: Magnesium Oxide 400 mg Tab UD PO SCH ×3 (09:28→18:12)
--- NOTE | 2017-01-11 10:50 | CP.PCM.PN ---
Subjective - Date & Time of Evaluation Date of Evaluation: 01/11/17 Time of Evaluation: 09:00 - Subjective Subjective: started on vfend for [place] Blastomycosis from [place] tacrolimus adjusted by renal levels to be done twice weekly left wrist swelling/ pain less consider mri / ortho eval- r/o blasto left wrist Objective - Vital Signs/Intake and Output Vital Signs (last 24 hours): Temp Pulse Resp BP Pulse Ox 98.4 F 76 20 139/79 99 01/11/17 07:25 01/11/17 07:25 01/11/17 07:25 01/11/17 09:27 01/11/17 07:25 - Medications Medications: Current Medications Carvedilol (Coreg) 25 mg PO BID [facility] Last Admin: 01/11/17 09:27 Dose: 25 mg Cinacalcet (Sensipar) 30 mg PO DAILY [facility] Last Admin: 01/11/17 09:26 Dose: 30 mg Famotidine (Pepcid) 20 mg PO DAILY [facility] Last Admin: 01/11/17 09:26 Dose: 20 mg Hydromorphone HCl (Dilaudid) 1 mg IVP Q4H PRN PRN Reason: Pain, severe (8-10) Last Admin: 01/11/17 00:41 Dose: 1 mg Tigecycline 50 mg/ Sodium (Chloride) 100 mls @ 100 mls/hr IVPB Q12H [facility] Last Admin: 01/11/17 00:42 Dose: 100 mls/hr Insulin Aspart (Novolog) 0 unit SC ACHS [facility] PRN Reason: Protocol Last Admin: 01/11/17 08:00 Dose: 2 unit Magnesium Oxide (Mag-Ox) 400 mg PO TID [facility] Last Admin: 01/11/17 09:28 Dose: 400 mg Prednisone (Prednisone Tab) 5 mg PO DAILY [facility] Last Admin: 01/11/17 09:26 Dose: 5 mg Sodium Bicarbonate (Sodium Bicarbonate Tab) 650 mg PO TID [facility] Last Admin: 01/11/17 09:27 Dose: 650 mg Tacrolimus (Prograf Cap) 3 mg PO DAILY [facility] Last Admin: 01/11/17 09:34 Dose: 3 mg Tacrolimus (Prograf Cap) 3 mg PO HS [facility] Last Admin: 01/10/17 22:02 Dose: 3 mg Voriconazole (Vfend 200 Mg Tab) 200 mg PO Q12H [facility] Last Admin: 01/11/17 04:47 Dose: 200 mg - Labs Labs: 01/11/17 06:52 01/11/17 06:52 PT 11.7 SECONDS (9.7-12.2) 01/08/17 01:35 INR 1.0 01/08/17 01:35 APTT 27 SECONDS (21-34) 01/08/17 01:35 - Constitutional Appears: Non-toxic, Chronically Ill - Head Exam Head Exam: NORMOCEPHALIC - Eye Exam Eye Exam: PERRL. absent: Scleral icterus - ENT Exam ENT Exam: Mucous Membranes Dry - Respiratory Exam Respiratory Exam: Decreased Breath Sounds - Cardiovascular Exam Cardiovascular Exam: REGULAR RHYTHM, +S1, +S2 - GI/Abdominal Exam GI & Abdominal Exam: Distended, Soft. absent: Tenderness - Rectal Exam Rectal Exam: Deferred - Exam Exam: NORMAL INSPECTION - Extremities Exam Extremities Exam: absent: Pedal Edema - Back Exam Back Exam: absent: CVA tenderness (L), CVA tenderness (R) Assessment and Plan (1) Blastomycosis Status: Acute (2) COPD exacerbation Status: Acute (3) Chronic kidney disease, stage 3 Status: Acute (4) Diabetes type 2, controlled Status: Acute
--- NOTE | 2017-01-11 13:15 | CP.PCM.PN ---
Subjective - Date & Time of Evaluation Date of Evaluation: 01/11/17 Time of Evaluation: 13:12 - Subjective Subjective: Treatment of blastomycosis noted Will need lower FK level- dose reduced due to use of VFend Will need f/u levels Left wrist very tender- likely gout Objective - Vital Signs/Intake and Output Vital Signs (last 24 hours): Temp Pulse Resp BP Pulse Ox 98.4 F 76 20 139/79 99 01/11/17 07:25 01/11/17 07:25 01/11/17 07:25 01/11/17 09:27 01/11/17 07:25 - Medications Medications: Current Medications Carvedilol (Coreg) 25 mg PO BID [facility] Last Admin: 01/11/17 09:27 Dose: 25 mg Cinacalcet (Sensipar) 30 mg PO DAILY [facility] Last Admin: 01/11/17 09:26 Dose: 30 mg Famotidine (Pepcid) 20 mg PO DAILY [facility] Last Admin: 01/11/17 09:26 Dose: 20 mg Hydromorphone HCl (Dilaudid) 1 mg IVP Q4H PRN PRN Reason: Pain, severe (8-10) Last Admin: 01/11/17 00:41 Dose: 1 mg Tigecycline 50 mg/ Sodium (Chloride) 100 mls @ 100 mls/hr IVPB Q12H [facility] Last Admin: 01/11/17 00:42 Dose: 100 mls/hr Insulin Aspart (Novolog) 0 unit SC ACHS [facility] PRN Reason: Protocol Last Admin: 01/11/17 12:00 Dose: Not Given Magnesium Oxide (Mag-Ox) 400 mg PO TID [facility] Last Admin: 01/11/17 09:28 Dose: 400 mg Prednisone (Prednisone Tab) 5 mg PO DAILY [facility] Last Admin: 01/11/17 09:26 Dose: 5 mg Sodium Bicarbonate (Sodium Bicarbonate Tab) 650 mg PO TID [facility] Last Admin: 01/11/17 09:27 Dose: 650 mg Tacrolimus (Prograf Cap) 3 mg PO DAILY [facility] Last Admin: 01/11/17 09:34 Dose: 3 mg Tacrolimus (Prograf Cap) 3 mg PO HS [facility] Last Admin: 01/10/17 22:02 Dose: 3 mg Voriconazole (Vfend 200 Mg Tab) 200 mg PO Q12H [facility] Last Admin: 01/11/17 04:47 Dose: 200 mg - Labs Labs: 01/11/17 06:52 01/11/17 06:52 PT 11.7 SECONDS (9.7-12.2) 01/08/17 01:35 INR 1.0 01/08/17 01:35 APTT 27 SECONDS (21-34) 01/08/17 01:35 - Constitutional Appears: No Acute Distress, Chronically Ill - Head Exam Head Exam: ATRAUMATIC, NORMAL INSPECTION - Eye Exam Eye Exam: EOMI, Normal appearance - Neck Exam Neck Exam: Normal Inspection. absent: Tenderness - Respiratory Exam Respiratory Exam: Clear to Ausculation Bilateral, NORMAL BREATHING PATTERN - Cardiovascular Exam Cardiovascular Exam: REGULAR RHYTHM, +S1 - GI/Abdominal Exam GI & Abdominal Exam: Soft. absent: Tenderness - Extremities Exam Extremities Exam: Normal Inspection. absent: Tenderness - Neurological Exam Neurological Exam: Alert, CN II-XII Intact - Skin Skin Exam: Dry, Warm Assessment and Plan (1) Gout attack Status: Acute (2) Blastomycosis Status: Acute (3) Chronic kidney disease, stage 3 Status: Acute (4) Kidney transplant recipient Status: Acute - Assessment and Plan (Free Text) Plan: Short course of IV steroids for gout f/o FK levels [place]
[2017-01-11] MEDS ORDERED: MethylPREDNISolone 40 mg Vial IVP SCH (13:30)
[2017-01-11] MEDS: MethylPREDNISolone 40 mg Vial IVP SCH (14:39)
--- NOTE | 2017-01-11 15:08 | MRI ---
MRI left wrist History: Pain and swelling. Evaluate for infection. Comparison: X-ray dated 01/10/2017 Technique: Multi-echo multiplanar sequences were performed through the left wrist without the use of intravenous contrast. Findings: Prominent wrist joint effusion in the radioulnar, radiocarpal, and mid carpal joint spaces with associated synovial debris and hypertrophy. Reactive edema seen throughout the visualized carpal bones as well as several of the metacarpal bases at that level including the radial styloid, proximal scaphoid, lunate, triquetrum, trapezium, trapezoid, capitate, hamate, and bases of the 2nd, 3rd, and 4th metacarpal bones with patchy decreased T1 signal and increased STIR signal. These findings are of uncertain clinical etiology and may represent an underlying acute infectious etiology such as a septic joint versus inflammatory arthropathy versus posttraumatic change versus additional etiology. Prominent subchondral cyst formation seen within the trapezoid bone measuring 6 millimeters, capitate measuring 6 millimeters, capitate measuring 7 millimeters, triquetrum measuring 4 millimeters, and base of the 2nd metatarsal bone measuring 4 millimeters. These may be the sequelae of an underlying inflammatory arthropathy or degenerative change versus additional etiology. Subchondral cyst formation with reactive edema seen at the level of the radial styloid of the distal radius. Cortical thickening and/or periosteal thickening of the radial sided cortex of the distal radius which may represent an underlying periostitis. Question small loose osteochondral body and/or synovial debris measuring 3-4 millimeters at the volar aspect of the proximal carpal row adjacent to the ulnar styloid. Fraying with increased signal seen at the scapholunate ligament suggestive for partial tearing. Lunatotriquetral ligament appears grossly preserved. Fraying with increased signal at the ulnar attachment of the triangular fibrocartilage suggestive for partial tearing. Negative ulnar variance. Moderate tenosynovitis of the 2nd and 5th extensor tendon compartments suggestive for a moderate to severe tenosynovitis. Mild tenosynovitis of the 3rd and 4th extensor tendon compartments. Thickening of the flexor retinaculum with volar surface bowing of the retinaculum suggestive for a moderate carpal tunnel syndrome. Ulnar nerve is preserved as it traverses Guyon's canal. Reticulation and edema within the circumferential subcutaneous soft tissues. Impression: 1. Prominent wrist joint effusion in the radioulnar, radiocarpal, and mid carpal joint spaces with associated synovial debris and hypertrophy. Reactive edema seen throughout the visualized carpal bones as well as several of the metacarpal bases at that level including the radial styloid, proximal scaphoid, lunate, triquetrum, trapezium, trapezoid, capitate, hamate, and bases of the 2nd, 3rd, and 4th metacarpal bones with patchy decreased T1 signal and increased STIR signal. These findings are of uncertain clinical etiology and may represent an underlying acute infectious etiology such as a septic joint/septic arthritis versus inflammatory arthropathy versus posttraumatic change versus additional etiology. 2. Prominent subchondral cyst formation seen within the trapezoid bone measuring 6 millimeters, capitate measuring 6 millimeters, capitate measuring 7 millimeters, triquetrum measuring 4 millimeters, and base of the 2nd metatarsal bone measuring 4 millimeters. These may be the sequelae of an underlying inflammatory arthropathy or degenerative change versus additional etiology. 3. Subchondral cyst formation with reactive edema seen at the level of the radial styloid of the distal radius. 4. Cortical thickening and/or periosteal thickening of the radial sided cortex of the distal radius which may represent an underlying periostitis. 5. Question small loose osteochondral body and/or synovial debris measuring 3-4 millimeters at the volar aspect of the proximal carpal row adjacent to the ulnar styloid. 6. Fraying with increased signal seen at the scapholunate ligament suggestive for partial tearing. 7. Fraying with increased signal at the ulnar attachment of the triangular fibrocartilage suggestive for partial tearing. Negative ulnar variance. 8. Moderate tenosynovitis of the 2nd and 5th extensor tendon compartments suggestive for a moderate to severe tenosynovitis. 9. Mild tenosynovitis of the 3rd and 4th extensor tendon compartments. 10. Thickening of the flexor retinaculum with volar surface bowing of the retinaculum suggestive for a moderate carpal tunnel syndrome. 11. Reticulation and edema within the circumferential subcutaneous soft tissues. These findings were relayed to nurse practitioner Tonny Rojas at 2:35 p.m. on 01/11/2017.
--- NOTE | 2017-01-11 17:29 | CP.PCM.PN ---
Subjective - Date & Time of Evaluation Date of Evaluation: 01/11/17 Time of Evaluation: 11:00 - Subjective Subjective: clinically same Objective - Vital Signs/Intake and Output Vital Signs (last 24 hours): Temp Pulse Resp BP Pulse Ox 98.4 F 68 20 152/72 H 100 01/11/17 15:12 01/11/17 15:12 01/11/17 15:12 01/11/17 15:12 01/11/17 15:12 - Medications Medications: Current Medications Carvedilol (Coreg) 25 mg PO BID [facility] Last Admin: 01/11/17 09:27 Dose: 25 mg Cinacalcet (Sensipar) 30 mg PO DAILY [facility] Last Admin: 01/11/17 09:26 Dose: 30 mg Colchicine (Colocrys) 0.6 mg PO DAILY [facility] Stop: 01/13/17 15:00 Last Admin: 01/11/17 14:57 Dose: 0.6 mg Famotidine (Pepcid) 20 mg PO DAILY [facility] Last Admin: 01/11/17 09:26 Dose: 20 mg Hydromorphone HCl (Dilaudid) 1 mg IVP Q4H PRN PRN Reason: Pain, severe (8-10) Last Admin: 01/11/17 00:41 Dose: 1 mg Tigecycline 50 mg/ Sodium (Chloride) 100 mls @ 100 mls/hr IVPB Q12H [facility] Last Admin: 01/11/17 13:00 Dose: 100 mls/hr Insulin Aspart (Novolog) 0 unit SC ACHS [facility] PRN Reason: Protocol Last Admin: 01/11/17 12:00 Dose: Not Given Magnesium Oxide (Mag-Ox) 400 mg PO TID [facility] Last Admin: 01/11/17 14:59 Dose: 400 mg Methylprednisolone (Solu-Medrol) 30 mg IVP DAILY [facility] Stop: 01/13/17 16:00 Last Admin: 01/11/17 14:39 Dose: 30 mg Prednisone (Prednisone Tab) 5 mg PO DAILY [facility] Last Admin: 01/11/17 09:26 Dose: 5 mg Sodium Bicarbonate (Sodium Bicarbonate Tab) 650 mg PO TID [facility] Last Admin: 01/11/17 14:39 Dose: 650 mg Tacrolimus (Prograf Cap) 3 mg PO DAILY [facility] Last Admin: 01/11/17 09:34 Dose: 3 mg Tacrolimus (Prograf Cap) 3 mg PO HS [facility] Last Admin: 01/10/17 22:02 Dose: 3 mg Voriconazole (Vfend 200 Mg Tab) 200 mg PO Q12H [facility] Last Admin: 01/11/17 04:47 Dose: 200 mg - Labs Labs: 01/11/17 06:52 01/11/17 06:52 PT 11.7 SECONDS (9.7-12.2) 01/08/17 01:35 INR 1.0 01/08/17 01:35 APTT 27 SECONDS (21-34) 01/08/17 01:35 - Constitutional Appears: Well - Head Exam Head Exam: ATRAUMATIC, NORMAL INSPECTION, NORMOCEPHALIC - Eye Exam Eye Exam: EOMI, Normal appearance, PERRL Pupil Exam: NORMAL ACCOMODATION, PERRL - ENT Exam ENT Exam: Mucous Membranes Moist, Normal Exam - Neck Exam Neck Exam: Full ROM, Normal Inspection. absent: Lymphadenopathy - Respiratory Exam Respiratory Exam: Decreased Breath Sounds - Cardiovascular Exam Cardiovascular Exam: REGULAR RHYTHM, +S1, +S2 - GI/Abdominal Exam GI & Abdominal Exam: Soft, Diminished Bowel Sounds - Rectal Exam Rectal Exam: Deferred
[2017-01-12 07:45] LABS: HEMATOCRIT 30.8 % (35.0-51.0); MEAN CELL VOLUME 91.1 fL (80.0-94.0); MEAN CORPUSCULAR HEMOGLOBIN 29.6 pg (27.0-31.0); MEAN CORPUSCULAR HGB CONC 32.5 g/dL (33.0-37.0); MEAN PLATELET VOLUME 10.6 fL (7.2-11.7); RED CELL DISTRIBUTION WIDTH 14.5 % (11.5-14.5); WHITE BLOOD COUNT 4.9 K/uL (4.8-10.8)
[2017-01-12 07:53] LABS: BILIRUBIN,TOTAL 0.7 mg/dL (0.2-1.3); TOTAL PROTEIN 5.7 g/dL (6.3-8.3)
[2017-01-12 07:54] LABS: CALCIUM 6.7 mg/dl (8.6-10.4)
[2017-01-12] MEDS: (Novolog) Insulin Aspart, Recombinant 100 u/ml 10 ml vial SC SCH ×4 (08:00→21:39)
[2017-01-12 08:35] LABS: FLUID TYPE SYNOVIAL FLUID
[2017-01-12 09:01] LABS: POTASSIUM 6.2 mmol/L (3.6-5.2)
[2017-01-12] MEDS: Magnesium Oxide 400 mg Tab UD PO SCH ×3 (09:14→19:01)
[2017-01-12] MEDS: MethylPREDNISolone 40 mg Vial IVP SCH (09:16)
[2017-01-12 10:15] LABS: SYNOVIAL FLUID TOTAL COUNT 100 (0-0)
[2017-01-12] MEDS ORDERED: Sod Polystyrene Sulf 15 gm/60 ml Oral Susp PO ONE (10:15)
--- NOTE | 2017-01-12 10:25 | CP.PCM.PN ---
Subjective - Date & Time of Evaluation Date of Evaluation: 01/12/17 Time of Evaluation: 07:00 - Subjective Subjective: cultures from joint pending crystals + consider rheum eval cont iv rx renal follow up adjust tacrolimus Objective - Vital Signs/Intake and Output Vital Signs (last 24 hours): Temp Pulse Resp BP Pulse Ox 98.4 F 64 18 163/72 H 98 01/12/17 07:12 01/12/17 07:12 01/12/17 07:12 01/12/17 09:17 01/12/17 07:12 - Medications Medications: Current Medications Carvedilol (Coreg) 25 mg PO BID [facility] Last Admin: 01/12/17 09:17 Dose: 25 mg Cinacalcet (Sensipar) 30 mg PO DAILY [facility] Last Admin: 01/12/17 09:14 Dose: 30 mg Colchicine (Colocrys) 0.6 mg PO DAILY [facility] Stop: 01/13/17 15:00 Last Admin: 01/12/17 09:19 Dose: 0.6 mg Famotidine (Pepcid) 20 mg PO DAILY [facility] Last Admin: 01/12/17 09:14 Dose: 20 mg Hydromorphone HCl (Dilaudid) 1 mg IVP Q4H PRN PRN Reason: Pain, severe (8-10) Last Admin: 01/11/17 22:06 Dose: 1 mg Tigecycline 50 mg/ Sodium (Chloride) 100 mls @ 100 mls/hr IVPB Q12H [facility] Last Admin: 01/12/17 00:44 Dose: 100 mls/hr Insulin Aspart (Novolog) 0 unit SC ACHS [facility] PRN Reason: Protocol Last Admin: 01/12/17 08:00 Dose: 5 unit Magnesium Oxide (Mag-Ox) 400 mg PO TID [facility] Last Admin: 01/12/17 09:14 Dose: 400 mg Methylprednisolone (Solu-Medrol) 30 mg IVP DAILY [facility] Stop: 01/13/17 16:00 Last Admin: 01/12/17 09:16 Dose: 30 mg Prednisone (Prednisone Tab) 5 mg PO DAILY [facility] Last Admin: 01/12/17 09:14 Dose: 5 mg Sodium Bicarbonate (Sodium Bicarbonate Tab) 650 mg PO TID [facility] Last Admin: 01/12/17 09:14 Dose: 650 mg Tacrolimus (Prograf Cap) 3 mg PO DAILY [facility] Last Admin: 01/12/17 09:19 Dose: 3 mg Tacrolimus (Prograf Cap) 3 mg PO HS [facility] Last Admin: 01/11/17 22:05 Dose: 3 mg Voriconazole (Vfend 200 Mg Tab) 200 mg PO Q12H [facility] Last Admin: 01/12/17 04:12 Dose: 200 mg - Labs Labs: 01/12/17 07:29 01/12/17 07:29 PT 11.7 SECONDS (9.7-12.2) 01/08/17 01:35 INR 1.0 01/08/17 01:35 APTT 27 SECONDS (21-34) 01/08/17 01:35 - Constitutional Appears: Non-toxic, Cachectic, Chronically Ill - Head Exam Head Exam: NORMOCEPHALIC - Eye Exam Eye Exam: PERRL - ENT Exam ENT Exam: Mucous Membranes Dry, Normal External Ear Exam - Neck Exam Neck Exam: absent: Lymphadenopathy - Respiratory Exam Respiratory Exam: Decreased Breath Sounds - Cardiovascular Exam Cardiovascular Exam: REGULAR RHYTHM - GI/Abdominal Exam GI & Abdominal Exam: Distended, Soft. absent: Tenderness - Rectal Exam Rectal Exam: Deferred - Exam Exam: NORMAL INSPECTION - Extremities Exam Extremities Exam: absent: Pedal Edema - Back Exam Back Exam: absent: CVA tenderness (L), CVA tenderness (R) - Neurological Exam Neurological Exam: Alert, Awake, Oriented x3 - Psychiatric Exam Psychiatric exam: Normal Mood - Skin Skin Exam: Dry, Intact Assessment and Plan (1) Blastomycosis Status: Acute (2) COPD exacerbation Status: Acute (3) Chronic kidney disease, stage 3 Status: Acute (4) Diabetes type 2, controlled Status: Acute
[2017-01-12 11:16] LABS: LYMPH # 0.7 K/uL (1.0-4.3); MONO # 0.2 K/uL (0.0-0.8)
--- NOTE | 2017-01-12 11:59 | CP.PCM.PN ---
Subjective - Date & Time of Evaluation Date of Evaluation: 01/12/17 Time of Evaluation: 11:56 - Subjective Subjective: seen and examined denies any n/v/d/f/c/cp/sob wrist pain improved good urine output labs noted Objective - Vital Signs/Intake and Output Vital Signs (last 24 hours): Temp Pulse Resp BP Pulse Ox 98.4 F 64 18 163/72 H 98 01/12/17 07:12 01/12/17 07:12 01/12/17 07:12 01/12/17 09:17 01/12/17 07:12 - Medications Medications: Current Medications Carvedilol (Coreg) 25 mg PO BID [facility] Last Admin: 01/12/17 09:17 Dose: 25 mg Cinacalcet (Sensipar) 30 mg PO DAILY [facility] Last Admin: 01/12/17 09:14 Dose: 30 mg Colchicine (Colocrys) 0.6 mg PO DAILY [facility] Stop: 01/13/17 15:00 Last Admin: 01/12/17 09:19 Dose: 0.6 mg Famotidine (Pepcid) 20 mg PO DAILY [facility] Last Admin: 01/12/17 09:14 Dose: 20 mg Hydromorphone HCl (Dilaudid) 1 mg IVP Q4H PRN PRN Reason: Pain, severe (8-10) Last Admin: 01/11/17 22:06 Dose: 1 mg Tigecycline 50 mg/ Sodium (Chloride) 100 mls @ 100 mls/hr IVPB Q12H [facility] Last Admin: 01/12/17 00:44 Dose: 100 mls/hr Sodium Chloride (Sodium Chloride 0.9%) 1,000 mls @ 60 mls/hr IV .[id number] [facility] Insulin Aspart (Novolog) 0 unit SC ACHS [facility] PRN Reason: Protocol Last Admin: 01/12/17 08:00 Dose: 5 unit Magnesium Oxide (Mag-Ox) 400 mg PO TID [facility] Last Admin: 01/12/17 09:14 Dose: 400 mg Methylprednisolone (Solu-Medrol) 30 mg IVP DAILY [facility] Stop: 01/13/17 16:00 Last Admin: 01/12/17 09:16 Dose: 30 mg Prednisone (Prednisone Tab) 5 mg PO DAILY [facility] Last Admin: 01/12/17 09:14 Dose: 5 mg Sodium Bicarbonate (Sodium Bicarbonate Tab) 650 mg PO TID [facility] Last Admin: 01/12/17 09:14 Dose: 650 mg Voriconazole (Vfend 200 Mg Tab) 200 mg PO Q12H [facility] Last Admin: 01/12/17 04:12 Dose: 200 mg - Labs Labs: 01/12/17 07:29 01/12/17 07:29 PT 11.7 SECONDS (9.7-12.2) 01/08/17 01:35 INR 1.0 01/08/17 01:35 APTT 27 SECONDS (21-34) 01/08/17 01:35 - Constitutional Appears: Non-toxic, No Acute Distress, Chronically Ill - Eye Exam Eye Exam: Normal appearance - ENT Exam ENT Exam: Mucous Membranes Moist, Normal Exam - Neck Exam Neck Exam: Normal Inspection - Respiratory Exam Respiratory Exam: Clear to Ausculation Bilateral, NORMAL BREATHING PATTERN - Cardiovascular Exam Cardiovascular Exam: REGULAR RHYTHM, RRR - GI/Abdominal Exam GI & Abdominal Exam: Soft, Normal Bowel Sounds - Extremities Exam Extremities Exam: Normal Inspection Assessment and Plan (1) Anemia Status: Acute (2) Blastomycosis Status: Acute (3) Gout attack Status: Acute (4) Hyperparathyroidism due to renal insufficiency Status: Acute (5) Acute hyperkalemia Status: Acute (6) Acute kidney failure Status: Acute (7) Diabetes type 2, controlled Status: Acute (8) ESBL (extended spectrum beta-lactamase) producing bacteria infection Status: Acute - Assessment and Plan (Free Text) Assessment: voriconazole tygecil for uti high tacro levels noted, dc for now. restart lower dose iv fluids agree w/ one dose of kayexelate prednisone for gout-recommend po dosing
[2017-01-12] MEDS: Sodium Chloride 0.9% 1,000 ML IV SCH (12:00)
--- NOTE | 2017-01-12 13:50 | CP.PCM.PN ---
Subjective - Date & Time of Evaluation Date of Evaluation: 01/12/17 Time of Evaluation: 12:00 - Subjective Subjective: clinically same Objective - Vital Signs/Intake and Output Vital Signs (last 24 hours): Temp Pulse Resp BP Pulse Ox 98.4 F 64 18 163/72 H 98 01/12/17 07:12 01/12/17 07:12 01/12/17 07:12 01/12/17 09:17 01/12/17 07:12 - Medications Medications: Current Medications Carvedilol (Coreg) 25 mg PO BID [facility] Last Admin: 01/12/17 09:17 Dose: 25 mg Cinacalcet (Sensipar) 30 mg PO DAILY [facility] Last Admin: 01/12/17 09:14 Dose: 30 mg Colchicine (Colocrys) 0.6 mg PO DAILY [facility] Stop: 01/13/17 15:00 Last Admin: 01/12/17 09:19 Dose: 0.6 mg Famotidine (Pepcid) 20 mg PO DAILY [facility] Last Admin: 01/12/17 09:14 Dose: 20 mg Hydromorphone HCl (Dilaudid) 1 mg IVP Q4H PRN PRN Reason: Pain, severe (8-10) Last Admin: 01/11/17 22:06 Dose: 1 mg Tigecycline 50 mg/ Sodium (Chloride) 100 mls @ 100 mls/hr IVPB Q12H [facility] Last Admin: 01/12/17 13:05 Dose: 100 mls/hr Sodium Chloride (Sodium Chloride 0.9%) 1,000 mls @ 60 mls/hr IV .[id number] [facility] Last Admin: 01/12/17 12:00 Dose: 60 mls/hr Insulin Aspart (Novolog) 0 unit SC ACHS [facility] PRN Reason: Protocol Last Admin: 01/12/17 12:00 Dose: 6 unit Magnesium Oxide (Mag-Ox) 400 mg PO TID [facility] Last Admin: 01/12/17 09:14 Dose: 400 mg Methylprednisolone (Solu-Medrol) 30 mg IVP DAILY [facility] Stop: 01/13/17 16:00 Last Admin: 01/12/17 09:16 Dose: 30 mg Prednisone (Prednisone Tab) 5 mg PO DAILY [facility] Last Admin: 01/12/17 09:14 Dose: 5 mg Sodium Bicarbonate (Sodium Bicarbonate Tab) 650 mg PO TID [facility] Last Admin: 01/12/17 13:05 Dose: 650 mg Voriconazole (Vfend 200 Mg Tab) 200 mg PO Q12H [facility] Last Admin: 01/12/17 04:12 Dose: 200 mg - Labs Labs: 01/12/17 07:29 01/12/17 07:29 PT 11.7 SECONDS (9.7-12.2) 01/08/17 01:35 INR 1.0 01/08/17 01:35 APTT 27 SECONDS (21-34) 01/08/17 01:35 - Constitutional Appears: Well - Head Exam Head Exam: ATRAUMATIC, NORMAL INSPECTION, NORMOCEPHALIC - Eye Exam Eye Exam: EOMI, Normal appearance, PERRL Pupil Exam: NORMAL ACCOMODATION, PERRL - ENT Exam ENT Exam: Mucous Membranes Moist, Normal Exam - Neck Exam Neck Exam: Full ROM, Normal Inspection. absent: Lymphadenopathy - Respiratory Exam Respiratory Exam: Decreased Breath Sounds - Cardiovascular Exam Cardiovascular Exam: REGULAR RHYTHM, +S1, +S2 - GI/Abdominal Exam GI & Abdominal Exam: Soft, Diminished Bowel Sounds - Rectal Exam Rectal Exam: Deferred
[2017-01-12 16:29] VITALS: RESP 20
[2017-01-12] MEDS ORDERED: (Novolog) Insulin Aspart, Recombinant 100 u/ml 10 ml vial SC STA (17:53)
[2017-01-12 20:29] LABS: HEMATOCRIT 28.3 % (35.0-51.0); MEAN CORPUSCULAR HGB CONC 32.2 g/dL (33.0-37.0); WHITE BLOOD COUNT 5.7 K/uL (4.8-10.8)
[2017-01-12 20:34] LABS: MEAN CELL VOLUME 91.8 fL (80.0-94.0); MEAN CORPUSCULAR HEMOGLOBIN 29.6 pg (27.0-31.0); MEAN PLATELET VOLUME 11.3 fL (7.2-11.7); RED CELL DISTRIBUTION WIDTH 14.2 % (11.5-14.5)
[2017-01-12 21:03] LABS: POTASSIUM 5.1 mmol/L (3.6-5.2)
[2017-01-12 21:05] LABS: ALB/GLOB RATIO 1.1 (1.0-2.1); BILIRUBIN,TOTAL 0.6 mg/dL (0.2-1.3); TOTAL PROTEIN 5.7 g/dL (6.3-8.3)
[2017-01-12 21:06] LABS: CALCIUM 6.6 mg/dl (8.6-10.4)
[2017-01-12 22:15] LABS: BASO # 0.1 K/uL (0.0-0.2); LYMPH # 0.6 K/uL (1.0-4.3); LYMPH % 10.7 % (20.0-40.0); MONO # 0.2 K/uL (0.0-0.8); MONO % 3.4 % (0.0-10.0)
[2017-01-13 01:58] VITALS: O2SAT 98
[2017-01-13] MEDS: Sodium Chloride 0.9% 1,000 ML IV SCH (07:00)
[2017-01-13] MEDS: (Novolog) Insulin Aspart, Recombinant 100 u/ml 10 ml vial SC SCH ×3 (07:44→18:26)
[2017-01-13 08:59] LABS: HEMATOCRIT 29.1 % (35.0-51.0); MEAN CELL VOLUME 90.9 fL (80.0-94.0); MEAN CORPUSCULAR HEMOGLOBIN 29.6 pg (27.0-31.0); MEAN CORPUSCULAR HGB CONC 32.6 g/dL (33.0-37.0); PLATELET COUNT 108 K/uL (130-400); RED CELL DISTRIBUTION WIDTH 14.6 % (11.5-14.5); WHITE BLOOD COUNT 6.8 K/uL (4.8-10.8)
[2017-01-13] MEDS: Magnesium Oxide 400 mg Tab UD PO SCH ×3 (09:13→18:24)
[2017-01-13] MEDS: MethylPREDNISolone 40 mg Vial IVP SCH (09:14)
[2017-01-13 09:23] LABS: POTASSIUM 5.1 mmol/L (3.6-5.2)
[2017-01-13 09:25] LABS: ALB/GLOB RATIO 0.9 (1.0-2.1); BILIRUBIN,TOTAL 0.5 mg/dL (0.2-1.3); TOTAL PROTEIN 5.6 g/dL (6.3-8.3)
[2017-01-13 09:26] LABS: CALCIUM 6.5 mg/dl (8.6-10.4)
[2017-01-13 10:35] LABS: LYMPH # 0.5 K/uL (1.0-4.3); MONO # 0.6 K/uL (0.0-0.8)
[2017-01-13 10:40] LABS: NEUTROPHIL 81 % (50-75); TOTAL CELLS COUNTED 100
--- NOTE | 2017-01-13 11:27 | CP.PCM.PN ---
Subjective - Date & Time of Evaluation Date of Evaluation: 01/13/17 Time of Evaluation: 11:20 - Subjective Subjective: clinically same Objective - Vital Signs/Intake and Output Vital Signs (last 24 hours): Temp Pulse Resp BP Pulse Ox 98.0 F 75 20 153/76 H 98 01/13/17 07:17 01/13/17 07:17 01/13/17 07:17 01/13/17 09:12 01/13/17 07:17 Intake and Output: 01/13/17 01/13/17 06:59 18:59 Intake Total 1490 Output Total 600 Balance 890 - Medications Medications: Current Medications Carvedilol (Coreg) 25 mg PO BID [facility] Last Admin: 01/13/17 09:12 Dose: 25 mg Cinacalcet (Sensipar) 30 mg PO DAILY [facility] Last Admin: 01/13/17 09:12 Dose: 30 mg Colchicine (Colocrys) 0.6 mg PO DAILY [facility] Stop: 01/13/17 15:00 Last Admin: 01/12/17 09:19 Dose: 0.6 mg Famotidine (Pepcid) 20 mg PO DAILY [facility] Last Admin: 01/13/17 09:13 Dose: 20 mg Hydromorphone HCl (Dilaudid) 1 mg IVP Q4H PRN PRN Reason: Pain, severe (8-10) Last Admin: 01/11/17 22:06 Dose: 1 mg Tigecycline 50 mg/ Sodium (Chloride) 100 mls @ 100 mls/hr IVPB Q12H [facility] Last Admin: 01/13/17 01:00 Dose: 100 mls/hr Sodium Chloride (Sodium Chloride 0.9%) 1,000 mls @ 60 mls/hr IV .[id number] [facility] Last Admin: 01/13/17 07:00 Dose: 60 mls/hr Insulin Aspart (Novolog) 0 unit SC ACHS [facility] PRN Reason: Protocol Last Admin: 01/13/17 07:44 Dose: 4 unit Magnesium Oxide (Mag-Ox) 400 mg PO TID [facility] Last Admin: 01/13/17 09:13 Dose: 400 mg Methylprednisolone (Solu-Medrol) 30 mg IVP DAILY [facility] Stop: 01/13/17 16:00 Last Admin: 01/13/17 09:14 Dose: 30 mg Prednisone (Prednisone Tab) 5 mg PO DAILY [facility] Last Admin: 01/12/17 09:14 Dose: 5 mg Sodium Bicarbonate (Sodium Bicarbonate Tab) 650 mg PO TID [facility] Last Admin: 01/13/17 09:13 Dose: 650 mg Voriconazole (Vfend 200 Mg Tab) 200 mg PO Q12H [facility] Last Admin: 01/13/17 05:10 Dose: 200 mg - Labs Labs: 01/13/17 08:42 01/13/17 08:42 PT 11.7 SECONDS (9.7-12.2) 01/08/17 01:35 INR 1.0 01/08/17 01:35 APTT 27 SECONDS (21-34) 01/08/17 01:35 - Constitutional Appears: Well - Head Exam Head Exam: ATRAUMATIC, NORMAL INSPECTION, NORMOCEPHALIC - Eye Exam Eye Exam: EOMI, Normal appearance, PERRL Pupil Exam: NORMAL ACCOMODATION, PERRL - ENT Exam ENT Exam: Mucous Membranes Moist, Normal Exam - Neck Exam Neck Exam: Full ROM, Normal Inspection. absent: Lymphadenopathy - Respiratory Exam Respiratory Exam: Decreased Breath Sounds - Cardiovascular Exam Cardiovascular Exam: REGULAR RHYTHM, +S1, +S2 - GI/Abdominal Exam GI & Abdominal Exam: Soft, Diminished Bowel Sounds - Rectal Exam Rectal Exam: Deferred
--- NOTE | 2017-01-13 13:20 | CP.PCM.PN ---
Subjective - Date & Time of Evaluation Date of Evaluation: 01/13/17 Time of Evaluation: 13:17 - Subjective Subjective: Off tacro due to high levels On steroids due to severe gout in wrist BSs elevated due to steroids Feels better overall Objective - Vital Signs/Intake and Output Vital Signs (last 24 hours): Temp Pulse Resp BP Pulse Ox 98.0 F 75 20 153/76 H 98 01/13/17 07:17 01/13/17 07:17 01/13/17 07:17 01/13/17 09:12 01/13/17 07:17 Intake and Output: 01/13/17 01/13/17 06:59 18:59 Intake Total 1490 Output Total 600 Balance 890 - Medications Medications: Current Medications Carvedilol (Coreg) 25 mg PO BID [facility] Last Admin: 01/13/17 09:12 Dose: 25 mg Cinacalcet (Sensipar) 30 mg PO DAILY [facility] Last Admin: 01/13/17 09:12 Dose: 30 mg Colchicine (Colocrys) 0.6 mg PO DAILY [facility] Stop: 01/13/17 15:00 Last Admin: 01/13/17 10:00 Dose: 0.6 mg Famotidine (Pepcid) 20 mg PO DAILY [facility] Last Admin: 01/13/17 09:13 Dose: 20 mg Hydromorphone HCl (Dilaudid) 1 mg IVP Q4H PRN PRN Reason: Pain, severe (8-10) Last Admin: 01/11/17 22:06 Dose: 1 mg Tigecycline 50 mg/ Sodium (Chloride) 100 mls @ 100 mls/hr IVPB Q12H [facility] Last Admin: 01/13/17 13:15 Dose: 100 mls/hr Sodium Chloride (Sodium Chloride 0.9%) 1,000 mls @ 60 mls/hr IV .[id number] [facility] Last Admin: 01/13/17 07:00 Dose: 60 mls/hr Insulin Aspart (Novolog) 0 unit SC ACHS [facility] PRN Reason: Protocol Last Admin: 01/13/17 12:00 Dose: 5 unit Magnesium Oxide (Mag-Ox) 400 mg PO TID [facility] Last Admin: 01/13/17 09:13 Dose: 400 mg Methylprednisolone (Solu-Medrol) 30 mg IVP DAILY [facility] Stop: 01/13/17 16:00 Last Admin: 01/13/17 09:14 Dose: 30 mg Prednisone (Prednisone Tab) 5 mg PO DAILY [facility] Last Admin: 01/12/17 09:14 Dose: 5 mg Sodium Bicarbonate (Sodium Bicarbonate Tab) 650 mg PO TID [facility] Last Admin: 01/13/17 09:13 Dose: 650 mg Voriconazole (Vfend 200 Mg Tab) 200 mg PO Q12H [facility] Last Admin: 01/13/17 05:10 Dose: 200 mg - Labs Labs: 01/13/17 08:42 01/13/17 08:42 PT 11.7 SECONDS (9.7-12.2) 01/08/17 01:35 INR 1.0 01/08/17 01:35 APTT 27 SECONDS (21-34) 01/08/17 01:35 - Constitutional Appears: No Acute Distress, Chronically Ill - Head Exam Head Exam: ATRAUMATIC, NORMAL INSPECTION - Eye Exam Eye Exam: EOMI, Normal appearance - Neck Exam Neck Exam: Normal Inspection. absent: Tenderness - Respiratory Exam Respiratory Exam: Clear to Ausculation Bilateral, NORMAL BREATHING PATTERN - Cardiovascular Exam Cardiovascular Exam: REGULAR RHYTHM, +S1 - GI/Abdominal Exam GI & Abdominal Exam: Soft. absent: Tenderness - Extremities Exam Extremities Exam: Normal Inspection. absent: Tenderness - Neurological Exam Neurological Exam: Alert, CN II-XII Intact - Skin Skin Exam: Dry, Warm Assessment and Plan (1) Gout attack Status: Acute (2) Blastomycosis Status: Acute (3) Chronic kidney disease, stage 3 Status: Acute (4) Kidney transplant recipient Status: Acute - Assessment and Plan (Free Text) Plan: Change to po prednisone Recheck FK level Treat blastomycosis Treat hyperglycemia
--- NOTE | 2017-01-13 14:00 | CP.PCM.CON ---
History of Present Illness - History of Present Illness History of Present Illness: 71-year-old male with PMH = diabetes, hypertension, known gout, history of renal transplant 2010, CKG stage III (on Prograf), long-standing history of blastomycosis for 1 year treated by infectious disease specialist as outpatient with improvement, was admitted through ER at [facility] on 01/08/17 left wrist pain and swelling as well as his chronic left inner thigh pain / infection since 05/2016. He has had multiple admissions to the hospital since the kidney transplant due to infection complications. Left thigh: He has known blastomycosis and developed a collection that has been under the treatment of infectious disease specialist. He was on tacrolimus as an outpatient and developed swelling bilateral lower extremity, the medication was stopped and the left thigh pain worsened. left wrist:worsening pain for the last week, no trauma, difficulty with range of motion with noted swelling and warmth. Pain got to the point where it was waking him at night. There is no history of left wrist pain or swelling. He denies fevers, chills, headache, nausea and vomiting, chest pain, shortness of breath other musculoskeletal issues. He denies calf pain or swelling. Review of Imaging: X-rays L wrist done at 01/10/17: 1. Cortical irregularity with a suggestion of periosteal thickening along the radial sided cortex of the distal radius. In the setting of acute infection, acute osteomyelitis can't be excluded. Correlation with MRI may be helpful for further evaluation if clinically indicated. 2. Diffuse osteopenia. Prominent narrowing of the radiocarpal joint space. 3. Suggestion of loss of height of the proximal carpal row which may be the sequelae of prominent degenerative change versus the sequelae of post traumatic and or postinflammatory/infectious changes. Clinical correlation. 4. Vascular calcifications. 5. Cortical irregularity seen at the dorsal aspect of the carpal row on the lateral view, nonspecific. 6. Soft tissue swelling and/or edema seen within the dorsal soft tissues at the level of the carpal bones MRI L wrist done at on 01/11/17 was read as: 1. Prominent wrist joint effusion in the radioulnar, radiocarpal, and mid carpal joint spaces with associated synovial debris and hypertrophy. Reactive edema seen throughout the visualized carpal bones as well as several of the metacarpal bases at that level including the radial styloid, proximal scaphoid, lunate, triquetrum, trapezium, trapezoid, capitate, hamate, and bases of the 2nd , 3rd, and 4th metacarpal bones with patchy decreased T1 signal and increased STIR signal. These findings are of uncertain clinical etiology and may represent an underlying acute infectious etiology such as a septic joint/septic arthritis versus inflammatory arthropathy versus posttraumatic change versus additional etiology. 2. Prominent subchondral cyst formation seen within the trapezoid bone measuring 6 millimeters, capitate measuring 6 millimeters, capitate measuring 7 millimeters, triquetrum measuring 4 millimeters, and base of the 2nd metatarsal bone measuring 4 millimeters. These may be the sequelae of an underlying inflammatory arthropathy or degenerative change versus additional etiology. 3. Subchondral cyst formation with reactive edema seen at the level of the radial styloid of the distal radius. 4. Cortical thickening and/or periosteal thickening of the radial sided cortex of the distal radius which may represent an underlying periostitis. 5. Question small loose osteochondral body and/or synovial debris measuring 3-4 millimeters at the volar aspect of the proximal carpal row adjacent to the ulnar styloid. 6. Fraying with increased signal seen at the scapholunate ligament suggestive for partial tearing. 7. Fraying with increased signal at the ulnar attachment of the triangular fibrocartilage suggestive for partial tearing. Negative ulnar variance. 8. Moderate tenosynovitis of the 2nd and 5th extensor tendon compartments suggestive for a moderate to severe tenosynovitis. 9. Mild tenosynovitis of the 3rd and 4th extensor tendon compartments. 10. Thickening of the flexor retinaculum with volar surface bowing of the retinaculum suggestive for a moderate carpal tunnel syndrome. 11. Reticulation and edema within the circumferential subcutaneous soft tissues. Past Patient History - Infectious Disease Hx of Infectious Diseases: None - Past Medical History & Family History Past Medical History?: Yes - Past Social History Smoking Status: Former Smoker - CARDIAC Hx Cardiac Disorders: Yes Hx Hypercholesterolemia: Yes Hx Hypertension: Yes - PULMONARY Hx Respiratory Disorders: No - NEUROLOGICAL Hx Neurological Disorder: No - HEENT Hx HEENT Problems: No - RENAL Hx Renal Failure: Yes (CKD, ESRD, HD,) - ENDOCRINE/METABOLIC Hx Diabetes Mellitus Type 1: Yes - HEMATOLOGICAL/ONCOLOGICAL Hx Blood Disorders: No - INTEGUMENTARY Hx Dermatological Problems: Yes Other/Comment: FUNGAL INFECTIONS - MUSCULOSKELETAL/RHEUMATOLOGICAL Hx Musculoskeletal Disorders: No Hx Falls: No - GASTROINTESTINAL Hx Gastrointestinal Disorders: No - GENITOURINARY/GYNECOLOGICAL Hx Genitourinary Disorders: No - PSYCHIATRIC Hx Psychophysiologic Disorder: No Hx Substance Use: No - SURGICAL HISTORY Hx Surgeries: Yes Hx Kidney Transplant: Yes (2010) Other/Comment: LEFT ARM A-V SHUNT. - ANESTHESIA Hx Anesthesia: Yes Hx Anesthesia Reactions: No Hx Malignant Hyperthermia: No Meds Home Medications: Home Medication List Medication Instructions Recorded Confirmed Type Insulin Aspart, Recombinant 0 unit SC ACHS unit 01/13/17 Rx [Novolog] Tacrolimus [Prograf Cap] 1 mg PO BID cap 01/13/17 Rx Voriconazole [Vfend 200 mg Tab] 200 mg PO Q12H 49 Days 01/13/17 Rx predniSONE [predniSONE Tab] 20 mg PO DAILY 2 Days 01/13/17 Rx Allergies/Adverse Reactions: Allergies Allergy/AdvReac Type Severity Reaction Status Date / Time No Known Allergies Allergy Verified 01/08/17 00:15 - Medications Medications: Current Medications Carvedilol (Coreg) 25 mg PO BID [facility] Last Admin: 01/13/17 09:12 Dose: 25 mg Cinacalcet (Sensipar) 30 mg PO DAILY [facility] Last Admin: 01/13/17 09:12 Dose: 30 mg Colchicine (Colocrys) 0.6 mg PO DAILY [facility] Stop: 01/13/17 15:00 Last Admin: 01/13/17 10:00 Dose: 0.6 mg Famotidine (Pepcid) 20 mg PO DAILY [facility] Last Admin: 01/13/17 09:13 Dose: 20 mg Hydromorphone HCl (Dilaudid) 1 mg IVP Q4H PRN PRN Reason: Pain, severe (8-10) Last Admin: 01/11/17 22:06 Dose: 1 mg Tigecycline 50 mg/ Sodium (Chloride) 100 mls @ 100 mls/hr IVPB Q12H [facility] Last Admin: 01/13/17 13:15 Dose: 100 mls/hr Sodium Chloride (Sodium Chloride 0.9%) 1,000 mls @ 60 mls/hr IV .[id number] [facility] Last Admin: 01/13/17 07:00 Dose: 60 mls/hr Insulin Aspart (Novolog) 0 unit SC ACHS [facility] PRN Reason: Protocol Last Admin: 01/13/17 12:00 Dose: 5 unit Magnesium Oxide (Mag-Ox) 400 mg PO TID [facility] Last Admin: 01/13/17 09:13 Dose: 400 mg Prednisone (Prednisone Tab) 5 mg PO DAILY [facility] Last Admin: 01/12/17 09:14 Dose: 5 mg Prednisone (Prednisone Tab) 20 mg PO DAILY [facility] Sodium Bicarbonate (Sodium Bicarbonate Tab) 650 mg PO TID [facility] Last Admin: 01/13/17 09:13 Dose: 650 mg Voriconazole (Vfend 200 Mg Tab) 200 mg PO Q12H [facility] Last Admin: 01/13/17 05:10 Dose: 200 mg Physical Exam - Extremities Exam Additional comments: Focused on Left Upper Extremity: Right Upper Extremity: - ttp, - swelling/warmth/redness, Full ROM at all joints w/o pain, - instability + 5/5 strength shoulder FF/ER/IR/Abd, elbow flex/ext, wrist flex/ext/sup/pron, fingers flex/ext at all joints, abd/add sensory intact C5-T2, UN/MN/AxN/RN/MscN 2+ RA, BCR all fingers Left Upper Extremity: ++ ttp at dorsal & volar wrist as well as distal ulna/TFCC , - redness/warmth, skin intact ROM at wrist restricted due to pain, able to tolerate 10 degree ff/ext, all other joints Full ROM w/o pain. + 5/5 strength shoulder FF/ER/IR/Abd, elbow flex/ext, wrist flex/ext/sup/pron, fingers flex/ext at all joints, abd/add sensory intact C5-T2, UN/MN/AxN/RN/MscN 2+ RA, BCR all fingers RIght Lower Extremity: normal -ttp, skin intact, -swelling/warmth/redness, Full ROM at all joints w/o pain, - instability + 5/5 strength hip flex/ext, knee flex/ext, ankle df/pf, toes up&down sensory intact L2-S1, DPN/TN/SPN 2+DP, BCR all toes Left Lower Extremity: +++ 5cm x 7 cm superficial dermal changes at proximal medial thigh, no purulence, + serous drainage, no fluctuance, appears like hypertrophic dermal chronic changes at medial thigh, - warmth/redness Full ROM at all joints w/o pain, - instability + 5/5 strength hip flex/ext, knee flex/ext, ankle df/pf, toes up&down sensory intact L2-S1, DPN/TN/SPN 2+DP, BCR all toes Results - Vital Signs Recent Vital Signs: Last Vital Signs Temp 98.0 F 01/13/17 07:17 Pulse 75 01/13/17 07:17 Resp 20 01/13/17 07:17 BP 153/76 H 01/13/17 09:12 Pulse Ox 98 01/13/17 07:17 - Labs Result Diagrams: 01/13/17 08:42 01/13/17 08:42 Labs: Laboratory Results - last 24 hr 01/12/17 01/12/17 01/12/17 16:57 20:15 20:15 WBC 5.7 RBC 3.08 L Hgb 9.1 L Hct 28.3 L MCV 91.8 MCH 29.6 MCHC 32.2 L RDW 14.2 Plt Count 104 L MPV 11.3 Neut % (Auto) 84.9 H Lymph % (Auto) 10.7 L [place] % (Auto) 3.4 Eos % (Auto) 0.0 Baso % (Auto) 1.0 Neut # 4.9 Lymph # 0.6 L [place] # 0.2 Eos # 0.0 Baso # 0.1 Neutrophils % (Manual) Band Neutrophils % Lymphocytes % (Manual) Monocytes % (Manual) Platelet Estimate Hypochromasia (manual) Target Cells Sodium 135 Potassium 5.1 Chloride 101 Carbon Dioxide 20 L Anion Gap 19 BUN 90 H Creatinine 2.6 H Est GFR ( Amer) 30 Est GFR (Non-Af Amer) 25 POC Glucose (mg/dL) 462 H* Random Glucose 443 H* Calcium 6.6 L Total Bilirubin 0.6 AST 30 ALT 23 Alkaline Phosphatase 102 Total Protein 5.7 L Albumin 3.0 L Globulin 2.7 Albumin/Globulin Ratio 1.1 01/12/17 01/13/17 01/13/17 21:23 06:31 08:42 WBC 6.8 RBC 3.21 L Hgb 9.5 L Hct 29.1 L MCV 90.9 MCH 29.6 MCHC 32.6 L RDW 14.6 H Plt Count 108 L MPV 11.0 Neut % (Auto) 84.0 H Lymph % (Auto) 7.0 L [place] % (Auto) 9.0 Eos % (Auto) 0.0 Baso % (Auto) 0.0 Neut # 5.6 Lymph # 0.5 L [place] # 0.6 Eos # 0.0 Baso # 0.0 Neutrophils % (Manual) 81 H Band Neutrophils % 3 H Lymphocytes % (Manual) 11 L Monocytes % (Manual) 5 Platelet Estimate Slightly decreased L Hypochromasia (manual) Slight Target Cells Slight Sodium Potassium Chloride Carbon Dioxide Anion Gap BUN Creatinine Est GFR ( Amer) Est GFR (Non-Af Amer) POC Glucose (mg/dL) 306 H 335 H Random Glucose Calcium Total Bilirubin AST ALT Alkaline Phosphatase Total Protein Albumin Globulin Albumin/Globulin Ratio 01/13/17 01/13/17 08:42 11:59 WBC RBC Hgb Hct MCV MCH MCHC RDW Plt Count MPV Neut % (Auto) Lymph % (Auto) [place] % (Auto) Eos % (Auto) Baso % (Auto) Neut # Lymph # [place] # Eos # Baso # Neutrophils % (Manual) Band Neutrophils % Lymphocytes % (Manual) Monocytes % (Manual) Platelet Estimate Hypochromasia (manual) Target Cells Sodium 137 Potassium 5.1 Chloride 102 Carbon Dioxide 25 Anion Gap 16 BUN 97 H Creatinine 2.6 H Est GFR ( Amer) 30 Est GFR (Non-Af Amer) 25 POC Glucose (mg/dL) 352 H Random Glucose 305 H Calcium 6.5 L Total Bilirubin 0.5 AST 25 ALT 26 Alkaline Phosphatase 102 Total Protein 5.6 L Albumin 2.7 L Globulin 2.9 Albumin/Globulin Ratio 0.9 L Assessment & Plan (1) Left wrist effusion Assessment and Plan: 71 yo Male, L wrist pain and swelling for almost 1 week, progressively worsening. Dx= L wrist #1 effusion #2 gout arthropathy L proximal thigh chronic superficial blasto infection Procedure= the risks, benefits, alternatives to a bedside L wrist aspiration were d/w pt at length, all questions answered, the pt accepted the risks and agreed to the procedure. The L wrist was prepped in standard sterile fashion, a 19 gauge needle was used to aspirate the radiocarpal/wrist joint via distal ulna approach. 1cc of cloudy fluid obtained, at that point 5 cc sterile normal saline was injected into the wrist joint and aspirated back out. There was successful aspiration of 5 cc of cloudy synovial fluid with clear gouty- like sediment. Cx's x3, fungal, AFB specimen sent to micro, cell count and crystal identification sent as well. Pt tolerated the procedure well. PLAN: L wrist: -clinically, significant joint effusion and limited ROM w/ pain, no redness/ warmth -MRI and x-rays questionable septic joint vs effusion -need to r/o septic joint -underwent aspiration today bedside of L wrist joint -most likely gouty arthropathy from macro evaluation of aspirate, there was significant aspirate at bottom of tube, appeared gouty -specimen sent to micro for cultures/fungal evaluation/AFB as well as cell count & crystals -will follow closely -if any signs of septic joint in aspirate, then will do I&D in OR tomorrow AM -otherwise, continue tx for gout and consider rheum consult L thigh: -clinically, chronic superficial infection -per patient, improved with abx tx -consider MRI to evaluate for deep extension and actual abscess formation, evaluate for need for surgical I&D/resection of tissue -s/p renal transplant, IV contrast not ideal, MRI w/o contrast is fine -this is a chronic issue going on since 05/2016, tx can be addressed as oupt Thank you for allowing me to contribute in the care of your pt. Katlyn Ortega MD Orthopedic Surgery Update= Aspirate from L wrist : cell count (-) for infection, (+) gout crystals, gram stains (-). surgery cancelled for now. Continue conservative treatment. Status: Acute
--- NOTE | 2017-01-13 15:01 | CP.PCM.PN ---
Subjective - Date & Time of Evaluation Date of Evaluation: 01/13/17 Time of Evaluation: 08:00 - Subjective Subjective: Patient states that wrist feels a little better since aspiration. No new complaints, prior gouty attacks in toe. Review of Systems - Review of Systems All systems: reviewed and no additional remarkable complaints except - Musculoskeletal Musculoskeletal: As Par HPI - Integumentary Integumentary: UNREMARKABLE - Neurological Neurological: UNREMARKABLE Objective - Vital Signs/Intake and Output Vital Signs (last 24 hours): Temp Pulse Resp BP Pulse Ox 98.0 F 75 20 153/76 H 98 01/13/17 07:17 01/13/17 07:17 01/13/17 07:17 01/13/17 09:12 01/13/17 07:17 Intake and Output: 01/13/17 01/13/17 06:59 18:59 Intake Total 1490 Output Total 600 Balance 890 - Medications Medications: Current Medications Carvedilol (Coreg) 25 mg PO BID [facility] Last Admin: 01/13/17 09:12 Dose: 25 mg Cinacalcet (Sensipar) 30 mg PO DAILY [facility] Last Admin: 01/13/17 09:12 Dose: 30 mg Colchicine (Colocrys) 0.6 mg PO DAILY [facility] Stop: 01/13/17 15:00 Last Admin: 01/13/17 10:00 Dose: 0.6 mg Famotidine (Pepcid) 20 mg PO DAILY [facility] Last Admin: 01/13/17 09:13 Dose: 20 mg Hydromorphone HCl (Dilaudid) 1 mg IVP Q4H PRN PRN Reason: Pain, severe (8-10) Last Admin: 01/11/17 22:06 Dose: 1 mg Tigecycline 50 mg/ Sodium (Chloride) 100 mls @ 100 mls/hr IVPB Q12H [facility] Last Admin: 01/13/17 13:15 Dose: 100 mls/hr Sodium Chloride (Sodium Chloride 0.9%) 1,000 mls @ 60 mls/hr IV .[id number] [facility] Last Admin: 01/13/17 07:00 Dose: 60 mls/hr Insulin Aspart (Novolog) 0 unit SC ACHS [facility] PRN Reason: Protocol Last Admin: 01/13/17 12:00 Dose: 5 unit Magnesium Oxide (Mag-Ox) 400 mg PO TID [facility] Last Admin: 01/13/17 09:13 Dose: 400 mg Prednisone (Prednisone Tab) 5 mg PO DAILY [facility] Last Admin: 01/12/17 09:14 Dose: 5 mg Prednisone (Prednisone Tab) 20 mg PO DAILY [facility] Sodium Bicarbonate (Sodium Bicarbonate Tab) 650 mg PO TID [facility] Last Admin: 01/13/17 09:13 Dose: 650 mg Voriconazole (Vfend 200 Mg Tab) 200 mg PO Q12H [facility] Last Admin: 01/13/17 05:10 Dose: 200 mg - Labs Labs: 01/13/17 08:42 01/13/17 08:42 PT 11.7 SECONDS (9.7-12.2) 01/08/17 01:35 INR 1.0 01/08/17 01:35 APTT 27 SECONDS (21-34) 01/08/17 01:35 - Constitutional Appears: Well, No Acute Distress - Respiratory Exam Respiratory Exam: NORMAL BREATHING PATTERN - Extremities Exam Additional comments: Left wrist: mild swelling, no erythema. Sensation intact, No increase in effusion, using left hand freely today, some limitation to wrist/flex/ext with mild pain - Neurological Exam Neurological Exam: Alert, Awake, Oriented x3 Neuro motor strength exam: Left Upper Extremity: 5 - Psychiatric Exam Psychiatric exam: Normal Affect, Normal Mood - Skin Skin Exam: Dry, Intact, Normal Color, Warm Assessment and Plan (1) Gout attack Assessment & Plan: Left wrist fluid +crystals and fluid cell count consistent with gout Micro fungal cx pending gram stain many wbc, no organisms Micro contacted x 3 today, awaiting fluid examination for fungal elements case discussed with Dr. Hooper, agrees with above Addendum: discussed with lab. ARSALAN prep negative for fungal elements from left wrist fluid. Will f/u cultures Dr. Hooper notified Status: Acute
--- NOTE | 2017-01-13 15:26 | CP.PCM.PN ---
Subjective - Date & Time of Evaluation Date of Evaluation: 01/13/17 Time of Evaluation: 15:25 Objective - Vital Signs/Intake and Output Vital Signs (last 24 hours): Temp Pulse Resp BP Pulse Ox 98.0 F 75 20 153/76 H 98 01/13/17 07:17 01/13/17 07:17 01/13/17 07:17 01/13/17 09:12 01/13/17 07:17 Intake and Output: 01/13/17 01/13/17 06:59 18:59 Intake Total 1490 Output Total 600 Balance 890 - Medications Medications: Current Medications Carvedilol (Coreg) 25 mg PO BID [facility] Last Admin: 01/13/17 09:12 Dose: 25 mg Cinacalcet (Sensipar) 30 mg PO DAILY [facility] Last Admin: 01/13/17 09:12 Dose: 30 mg Famotidine (Pepcid) 20 mg PO DAILY [facility] Last Admin: 01/13/17 09:13 Dose: 20 mg Hydromorphone HCl (Dilaudid) 1 mg IVP Q4H PRN PRN Reason: Pain, severe (8-10) Last Admin: 01/11/17 22:06 Dose: 1 mg Tigecycline 50 mg/ Sodium (Chloride) 100 mls @ 100 mls/hr IVPB Q12H [facility] Last Admin: 01/13/17 13:15 Dose: 100 mls/hr Sodium Chloride (Sodium Chloride 0.9%) 1,000 mls @ 60 mls/hr IV .[id number] [facility] Last Admin: 01/13/17 07:00 Dose: 60 mls/hr Insulin Aspart (Novolog) 0 unit SC ACHS [facility] PRN Reason: Protocol Last Admin: 01/13/17 12:00 Dose: 5 unit Magnesium Oxide (Mag-Ox) 400 mg PO TID [facility] Last Admin: 01/13/17 15:00 Dose: 400 mg Prednisone (Prednisone Tab) 5 mg PO DAILY [facility] Last Admin: 01/12/17 09:14 Dose: 5 mg Prednisone (Prednisone Tab) 20 mg PO DAILY [facility] Sodium Bicarbonate (Sodium Bicarbonate Tab) 650 mg PO TID [facility] Last Admin: 01/13/17 15:00 Dose: 650 mg Voriconazole (Vfend 200 Mg Tab) 200 mg PO Q12H [facility] Last Admin: 01/13/17 05:10 Dose: 200 mg - Labs Labs: 01/13/17 08:42 01/13/17 08:42 PT 11.7 SECONDS (9.7-12.2) 01/08/17 01:35 INR 1.0 01/08/17 01:35 APTT 27 SECONDS (21-34) 01/08/17 01:35
--- NOTE | 2017-01-13 18:01 | MRI ---
PROCEDURE: MRI of the left thigh without contrast HISTORY: BLASTOMYCOSIS COMPARISON: No prior similar study available for comparison. TECHNIQUE: Coronal sagittal and axial MRI images left thigh were obtained without IV contrast administration P FINDINGS: There is irregular skin thickening and foci of skin ulceration at the medial aspect of the proximal to mid thigh. Findings likely represent skin infectious process/ cellulitis. No evidence of drainable fluid collection. No evidence of infection or fluid collection in the adjacent deep soft tissue. The adjacent muscles at the medial aspect of the left thigh demonstrates normal signal and shape. No evidence of significant lymphadenopathy in the visualized portion of the left groin and femoral region. The osseous structures are grossly unremarkable. IMPRESSION: Skin irregular thickening and ulceration seen at the medial aspect of the proximal to mid left thigh likely represent skin infection. No evidence of abscess formation or deep soft tissue involvement. The deep soft tissue including the muscles in the left thigh are grossly unremarkable.
--- NOTE | 2017-01-13 18:20 | CP.PCM.PN ---
Subjective - Date & Time of Evaluation Date of Evaluation: 01/13/17 Time of Evaluation: 08:00 - Subjective Subjective: events noted iv rx in progress await mri thigh Objective - Vital Signs/Intake and Output Vital Signs (last 24 hours): Temp Pulse Resp BP Pulse Ox 98.0 F 75 20 153/76 H 98 01/13/17 07:17 01/13/17 07:17 01/13/17 07:17 01/13/17 09:12 01/13/17 07:17 Intake and Output: 01/13/17 01/13/17 06:59 18:59 Intake Total 1490 Output Total 600 Balance 890 - Medications Medications: Current Medications Carvedilol (Coreg) 25 mg PO BID [facility] Last Admin: 01/13/17 09:12 Dose: 25 mg Cinacalcet (Sensipar) 30 mg PO DAILY [facility] Last Admin: 01/13/17 09:12 Dose: 30 mg Famotidine (Pepcid) 20 mg PO DAILY [facility] Last Admin: 01/13/17 09:13 Dose: 20 mg Hydromorphone HCl (Dilaudid) 1 mg IVP Q4H PRN PRN Reason: Pain, severe (8-10) Last Admin: 01/11/17 22:06 Dose: 1 mg Tigecycline 50 mg/ Sodium (Chloride) 100 mls @ 100 mls/hr IVPB Q12H [facility] Last Admin: 01/13/17 13:15 Dose: 100 mls/hr Sodium Chloride (Sodium Chloride 0.9%) 1,000 mls @ 60 mls/hr IV .[id number] [facility] Last Admin: 01/13/17 07:00 Dose: 60 mls/hr Insulin Aspart (Novolog) 0 unit SC ACHS [facility] PRN Reason: Protocol Last Admin: 01/13/17 12:00 Dose: 5 unit Magnesium Oxide (Mag-Ox) 400 mg PO TID [facility] Last Admin: 01/13/17 15:00 Dose: 400 mg Prednisone (Prednisone Tab) 5 mg PO DAILY [facility] Last Admin: 01/12/17 09:14 Dose: 5 mg Prednisone (Prednisone Tab) 20 mg PO DAILY [facility] Sodium Bicarbonate (Sodium Bicarbonate Tab) 650 mg PO TID [facility] Last Admin: 01/13/17 15:00 Dose: 650 mg Voriconazole (Vfend 200 Mg Tab) 200 mg PO Q12H [facility] Last Admin: 01/13/17 05:10 Dose: 200 mg - Labs Labs: 01/13/17 08:42 01/13/17 08:42 PT 11.7 SECONDS (9.7-12.2) 01/08/17 01:35 INR 1.0 01/08/17 01:35 APTT 27 SECONDS (21-34) 01/08/17 01:35 Assessment and Plan (1) Blastomycosis Status: Acute (2) COPD exacerbation Status: Acute (3) Chronic kidney disease, stage 3 Status: Acute (4) Diabetes type 2, controlled Status: Acute
[2017-01-13 18:22] VITALS: BP 160/77; PULSE 66; TEMP 98
== END 2017-01-13 19:45 | DRG 868 ==
LOC: C.ER 23:48 → C.6T 01-08 04:24
PROVIDERS: ADMIT Internal Medicine Nephrology; ATTEND Internal Medicine Nephrology
PROC: 0R9P3ZX Drainage of Left Wrist Joint, Percutaneous Approach, Diagnostic (ICD-10-PCS; principal; 2017-01-12)
DX: B40.3 Cutaneous blastomycosis (principal); J44.1 Chronic obstructive pulmonary disease with (acute) exacerbation; M10.9 Gout, unspecified; N17.9 Acute kidney failure, unspecified; E11.22 Type 2 diabetes mellitus with diabetic chronic kidney disease; N25.81 Secondary hyperparathyroidism of renal origin; N39.0 Urinary tract infection, site not specified; Z94.0 Kidney transplant status; M85.80 Other specified disorders of bone density and structure, unspecified site; E10.22 Type 1 diabetes mellitus with diabetic chronic kidney disease; E87.5 Hyperkalemia; M65.9 Synovitis and tenosynovitis, unspecified; T38.0X5A Adverse effect of glucocorticoids and synthetic analogues, initial encounter; I12.9 Hypertensive chronic kidney disease with stage 1 through stage 4 chronic kidney disease, or unspecified chronic kidney disease; N18.3 Chronic kidney disease, stage 3 (moderate); D64.9 Anemia, unspecified; K21.9 Gastro-esophageal reflux disease without esophagitis; E78.00 Pure hypercholesterolemia, unspecified; Z79.4 Long term (current) use of insulin; Z87.891 Personal history of nicotine dependence